=== PATIENT | female | born 1990 | race Caucasian/White ===

== ENCOUNTER 2024-12-17 05:04 | Emergency (ER) | payer OTHER, SELFPAY ==
--- OUTSIDE RECORDS SUMMARY | 2024-12-15 08:30 | XMS_ITS | Encounter Summary ---
Author Organization [facility] Address [address] [place] [address] Care Team Providers Care Edger Hand Name Role Phone Souleymane Mccallum MD Primary Care Provider [phone] Reason for Visit * Reason Comments 48 hour holter monitor * Cardiac Stress Testing (Routine) - Authorized Specialty Diagnoses / Procedures Referred By Contac t Referred To Contact Cardiology Diagnoses Dizziness Procedures Cardiac holter monitor (<= 48 hours) [place] ECG EXTERNAL UP TO 48 HOURS RECORDING W[place] ECG EXTERNAL < 48 HOURS CONTINUOUS RECORDING/STORAGE R&I BY A PHYS/QHP [place] EXTERNAL ECG UP TO 48 HRS INCL RECORDING SCANNING ANLYS W REPORT Alfredito Echevarria MD [address] [place] [address] DRIVE [address] [place] [address] Phone: tel: fax: [facility] Referral ID Status Reason Start Date Expiration Date V isits Requested Visits Authorized [id number] Authorized 11/28/2024 11/28/2025 1 1 Encounter Details Date Type Department Care Team (Late st Contact Info) Description 12/15/2024 8:30 AM EDT Ancillary Procedure [facility] [address] [place] [address] Dizziness Social History Tobacco Use Types Packs/Day Years Used Date Smoking Tobacco: Never Smokeless Tobacco: Never Alcohol Use Standard Drinks/Week Comments No 0 (1 standard drink = 0.6 oz pur e alcohol) Comments Unknown Sex and Gender Information Value Date Recorded Sex Assigned at Not on file Legal Sex Female 8:16 AM EST Gender Identity Not on file Sexual Orientation Not on file documented as of this encounter Plan of Treatment Upcoming Encounters Date Type Department Care Team (Late st Contact Info) Description 12/22/2024 8:20 AM EDT Office Visit [facility] [address] [place] [address] lAfredito Echevarria MD [address] [place] [address] DRIVE [address] [place] [address] 12/26/2024 1:00 PM EDT Appointment [facility] [address] [place] [phone] Pending Results Name Type Priority Associated Diagnoses Date /Time Cardiac holter monitor (<= 48 hours) Cardiac Services Routine Dizziness 12/15/2024 8:13 AM EDT documented as of this encounter Visit Diagnoses Diagnosis Dizziness Dizziness and giddiness documented in this encounter Care Teams Edger Hand Relationship Specialty Start Date End Date Souleymane Mccallum MD [address] [place] [id number] PCP - General Internal Medicine 12/04/24 documented as of this encounter
[2024-12-17] VITALS (10 sets, daily range): BP systolic 91–110; BP diastolic 55–76; PULSE 65–86; RESP 16–26; TEMP 36.6–36.8; O2SAT 97–100; BMI 30.7
--- NOTE | ~2024-12-17 | US_ITS ---
CLINICAL HISTORY: abnormal vaginal bleeding US pelvis transvaginal Comparison: None provided Findings: Transvaginal scanning performed. The uterus is 8.1 cm length. Normal myometrium. Endometrium 4.0 mm thickness. Right ovary 2.5 x 1.6 x 2.1 cm. Left ovary 2.9 x 1.9 x 2.8 cm. Normal color Doppler of both ovaries. No free fluid. IMPRESSION: No acute findings. This document has been electronically signed by: Gutierrez Allen MD on 12/17/2024 10:56:16
[2024-12-17 05:58] LABS: Hematocrit 34.4 % (37.0-47.0); Hemoglobin 11.0 g/dl (12.0-16.0); Imm Gran Abs Auto 0.01 X10*3/uL (0.00-0.03); Imm Gran Pct Auto 0.3 % (0.0-0.4); Lymphocytes Absolute Auto 1.1 X10*3/uL (1.2-4.9); MANUAL DIFF FLAG NO; Mean Corpuscular HGB Conc 32.0 g/dl (31.0-35.0); Mean Corpuscular Hemoglobin 27.0 pg (27.0-33.0); Mean Corpuscular Volume 84.5 fL (80.0-98.0); NRBC Abs Auto 0.000 X10*3/uL (0.0-0.012); NRBC Pct Auto 0.0 /100WBC (0.0-0.2); Platelet Count 231 X10*3/uL (160-400); Red Blood Count 4.07 X10*6/uL (4.20-5.50); White Blood Count 4.0 X10*3/uL (4.8-10.8)
--- NOTE | 2024-12-17 06:11 | PC.NURSE ---
20 G IV line established in L forearm, labs drawn and sent to lab for processing.
[2024-12-17 06:16] LABS: Alanine Aminotransferase 11 U/L (0-31); Albumin Level 4.4 g/dL (3.5-5.0); Alkaline Phosphatase 52 U/L (39-117); Anion Gap 14 (12-20); Aspartate Amino Transferase 22 U/L (5-31); Blood Urea Nitrogen 11 mg/dL (9-16); Calcium 9.0 mg/dL (8.4-10.2); Carbon Dioxide 18 mmol/L (22-29); Chloride 114 mmol/L (96-108); Creatinine Clr Calc Pharmacy 117.3; Estimated Glomerular Filt Rate > 60; Potassium 4.3 mmol/L (3.3-5.1); Sodium 142 mmol/L (135-145); Total Protein 7.6 g/dL (6.5-8.0)
--- OUTSIDE RECORDS SUMMARY | 2024-12-17 06:29 | XMS_ITS | Patient Health Record ---
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 Name Role Phone AURA MARTINEZ Unavailable [phone] MCCALLUMDANETTE BELL Unavailable [phone] TIRSOADRIANO Unavailable [phone] Nydia Marmolejo Unavailable [phone] SUZETTE LOWE Unavailable [phone] Allergies No Known Allergies Results Component Value Reference Range Notes CBC (INCLUDES DIFF/PLT) Reviewed date:09/11/2024 01:32:33 PM Interpretation: Performing Lab:NL2, [employer] [facility] [id number] Raul Bustillo Notes/Report: FASTING: YES FASTING:YES WHITE BLOOD CELL COUNT 4.1 3.8-10.8 Thousand/ uL RED BLOOD CELL COUNT 3.76 3.80-5.10 Million/uL HEMOGLOBIN 9.5 11.7-15.5 g/dL HEMATOCRIT 31.5 35.0-45.0 % MCV 83.8 80.0-100.0 fL MCH 25.3 27.0-33.0 pg MCHC 30.2 32.0-36.0 g/dL For adults, a slight decrease in the calculated MCHC value (in the range of 30 to 32 g/dL) is most likely not clinically significant; however, it should be interpreted with caution in correlation with other red cell parameters and the patient's clinical condition. RDW 14.8 11.0-15.0 % PLATELET COUNT 249 140-400 Thousand/uL MPV 10.8 7.5-12.5 fL ABSOLUTE NEUTROPHILS 2583 0456-8120 cells/uL ABSOLUTE LYMPHOCYTES 3499 534-9212 cells/uL ABSOLUTE MONOCYTES 340 200-950 cells/uL ABSOLUTE EOSINOPHILS 62 15-500 cells/uL ABSOLUTE BASOPHILS 21 0-200 cells/uL NEUTROPHILS 63 LYMPHOCYTES 26.7 MONOCYTES 8.3 EOSINOPHILS 1.5 BASOPHILS 0.5 URINALYSIS, COMPLETE Reviewed date:09/11/2024 01:32:33 PM Interpretation: Performing Lab:NL2, [employer] [facility] [address] Raul Bustillo Notes/Report: FASTING:YES FASTING: YES COLOR YELLOW YELLOW APPEARANCE CLEAR CLEAR SPECIFIC GRAVITY 1.019 1.001-1.035 PH 6.5 5.0-8.0 GLUCOSE NEGATIVE NEGATIVE BILIRUBIN NEGATIVE NEGATIVE KETONES NEGATIVE NEGATIVE OCCULT BLOOD NEGATIVE NEGATIVE PROTEIN NEGATIVE NEGATIVE NITRITE NEGATIVE NEGATIVE LEUKOCYTE ESTERASE NEGATIVE NEGATIVE WBC 0-5 < OR = 5 /HPF RBC NONE SEEN < OR = 2 /HPF SQUAMOUS EPITHELIAL CELLS 0-5 < OR = 5 /HPF BACTERIA NONE SEEN NONE SEEN /HPF HYALINE CAST NONE SEEN NONE SEEN /LPF NOTE This urine was analyzed for the presence of WBC, RBC, bacteria, casts, and other formed elements. Only those elements seen were reported. LIPID PANEL, STANDARD Reviewed date:09/11/2024 01:32:33 PM Interpretation: Performing Lab:2, [employer] [address] Giancarlo Missael [facility] Notes/Report: FASTING:YES FASTING: YES CHOLESTEROL, TOTAL 154 <200 mg/dL HDL CHOLESTEROL 56 > OR = 50 mg/dL TRIGLYCERIDES 48 <150 mg/dL LDL-CHOLESTEROL 84 Reference range: <100 Desirable range <100 mg/dL for primary prevention; <70 mg/dL for patients with CHD or diabetic patients with > or = 2 CHD risk factors. LDL-C is now calculated using the Shirley calculation, which is a validated novel method providing better accuracy than the Friedewald equation in the estimation of LDL-C. Martin KOWALSKI et al. [place]. 2013;310(19): 3496-1964 (http://education.Appbistro.Disconnect/faq/VFJ112) CHOL/HDLC RATIO 2.8 <5.0 (calc) NON HDL CHOLESTEROL 98 <130 mg/dL (calc) For patients with diabetes plus 1 major ASCVD risk factor, treating to a non-HDL-C goal of <100 mg/dL (LDL-C of <70 mg/dL) is considered a therapeutic option. COMPREHENSIVE METABOLIC PANE L Reviewed date:09/11/2024 01:32:33 PM Interpretation: Performing Lab:NL2, [employer] [facility] Raul Bustillo Notes/Report: FASTING:YES FASTING: YES GLUCOSE 89 65-99 mg/dL Fasting reference interval UREA NITROGEN (BUN) 10 7-25 mg/dL CREATININE 0.67 0.50-0.97 mg/dL EGFR 117 > OR = 60 mL/min/1.73m2 BUN/CREATININE RATIO SEE NOTE: 6-22 (calc) Not Reported: BUN and Creatinine are within reference range. SODIUM 139 135-146 mmol/L POTASSIUM 4.8 3.5-5.3 mmol/L CHLORIDE 105 98-110 mmol/L CARBON DIOXIDE 27 20-32 mmol/L CALCIUM 8.8 8.6-10.2 mg/dL PROTEIN, TOTAL 7.0 6.1-8.1 g/dL ALBUMIN 4.3 3.6-5.1 g/dL GLOBULIN 2.7 1.9-3.7 g/dL (calc) ALBUMIN/GLOBULIN RATIO 1.6 1.0-2.5 (calc) BILIRUBIN, TOTAL 0.3 0.2-1.2 mg/dL ALKALINE PHOSPHATASE 47 31-125 U/L AST 13 10-30 U/L ALT 12 6-29 U/L HEMOGLOBIN A1c Reviewed date:09/11/2024 01:32:33 PM Interpretation: Performing Lab:NL2, [employer] [facility] Raul Bustillo Notes/Report: FASTING:YES FASTING: YES HEMOGLOBIN A1c 5.5 <5.7 % of total Hgb For the purpose of screening for the presence of diabetes: <5.7% Consistent with the absence of diabetes 5.7-6.4% Consistent with increased risk for diabetes (prediabetes) > or =6.5% Consistent with diabetes This assay result is consistent with a decreased risk of diabetes. Currently, no consensus exists regarding use of hemoglobin A1c for diagnosis of diabetes in children. According to [place] Diabetes Association (ADA) guidelines, hemoglobin A1c <7.0% represents optimal control in non- diabetic patients. Different metrics may apply to specific patient populations. Standards of Medical Care in Diabetes(ADA). T4, FREE Reviewed date:09/11/2024 01:32:33 PM Interpretation: Performing Lab:NL2, [employer] [facility]SkyMaria [place] [id number] [place] [address] Missael [facility] Notes/Report: FASTING:YES FASTING: YES T4, FREE 1.2 0.8-1.8 ng/dL T3, TOTAL Reviewed date:09/11/2024 01:32:33 PM Interpretation: Performing Lab:NL2, [employer] [facility] [facility] Notes/Report: FASTING:YES FASTING: YES T3, TOTAL 86 76-181 ng/dL TSH Reviewed date:09/11/2024 01:32:33 PM Interpretation: Performing Lab:NL2, [employer] [facility] [place] [id number] [place] [address] [facility] Notes/Report: FASTING:YES FASTING: YES TSH 1.46 Reference Range > or = 20 Years 0.40-4.50 Ranges First trimester 0.26-2.66 Second trimester 0.55-2.73 Third trimester 0.43-2.91 T3, FREE Reviewed date:09/11/2024 01:32:33 PM Interpretation: Performing Lab:NL2, [employer] [facility] [place] [id number] Missael [facility] Notes/Report: FASTING:YES FASTING: YES T3, FREE 2.8 2.3-4.2 pg/mL VITAMIN D,25-OH,TOTAL,IA Reviewed date:09/11/2024 01:32:33 PM Interpretation: Performing Lab:NL2, [employer] [facility] [place] [id number] Missael [facility] Notes/Report: FASTING:YES FASTING: YES VITAMIN D,25-OH,TOTAL,IA 31 30-100 ng/mL Vitamin D Status 25-OH Vitamin D: Deficiency: <20 ng/mL Insufficiency: 20 - 29 ng/mL Optimal: > or = 30 ng/mL For 25-OH Vitamin D testing on patients on D2-supplementation and patients for whom quantitation of D2 and D3 fractions is required, the QuestAssureD(TM) 25-OH VIT D, (D2,D3), LC/MS/MS is recommended: order code 11279 (patients >2yrs). See Note 1 Note 1 For additional information, please refer to http://education.[employer]/faq/CWD672 (This link is being provided for informational/ educational purposes only.) PHOSPHATE ( PHOSPHORUS) Reviewed date:11/03/2024 07:59:25 AM Interpretation: Performing Lab:NL2, [employer] [facility] [place] [id number] Raul Bustillo Notes/Report: FASTING: YES FASTING:YES PHOSPHATE ( PHOSPHORUS) 3.5 2.5-4.5 mg/dL HEMOGLOBIN A1c Reviewed date:11/03/2024 07:59:25 AM Interpretation: Performing Lab:NL2, [employer] [facility] Giancarlo Missael Montiel Notes/Report: FASTING: YES FASTING:YES HEMOGLOBIN A1c 5.2 <5.7 % For the purpose of screening for the presence of diabetes: <5.7% Consistent with the absence of diabetes 5.7-6.4% Consistent with increased risk for diabetes (prediabetes) > or =6.5% Consistent with diabetes This assay result is consistent with a decreased risk of diabetes. Currently, no consensus exists regarding use of hemoglobin A1c for diagnosis of diabetes in children. According to [place] Diabetes Association (ADA) guidelines, hemoglobin A1c <7.0% represents optimal control in non- diabetic patients. Different metrics may apply to specific patient populations. Standards of Medical Care in Diabetes(ADA). COMPREHENSIVE METABOLIC PANE L Reviewed date:11/03/2024 07:59:25 AM Interpretation: Performing Lab:NL2, [employer] [facility] Raul Bustillo Notes/Report: FASTING:YES FASTING: YES GLUCOSE 83 65-99 mg/dL Fasting reference interval UREA NITROGEN (BUN) 9 7-25 mg/dL CREATININE 0.56 0.50-0.97 mg/dL EGFR 122 > OR = 60 mL/min/1.73m2 BUN/CREATININE RATIO SEE NOTE: 6-22 (calc) Not Reported: BUN and Creatinine are within reference range. SODIUM 140 135-146 mmol/L POTASSIUM 4.9 3.5-5.3 mmol/L CHLORIDE 107 98-110 mmol/L CARBON DIOXIDE 26 20-32 mmol/L CALCIUM 9.3 8.6-10.2 mg/dL PROTEIN, TOTAL 7.0 6.1-8.1 g/dL ALBUMIN 4.4 3.6-5.1 g/dL GLOBULIN 2.6 1.9-3.7 g/dL (calc) ALBUMIN/GLOBULIN RATIO 1.7 1.0-2.5 (calc) BILIRUBIN, TOTAL 0.6 0.2-1.2 mg/dL ALKALINE PHOSPHATASE 48 31-125 U/L AST 12 10-30 U/L ALT 8 6-29 U/L CBC (INCLUDES DIFF/PLT) Reviewed date:11/03/2024 09:45:44 AM Interpretation: Performing Lab:NL2, [employer] [facility] [address] [place], [place] [address] Raul Bustillo Notes/Report: FASTING:YES FASTING: YES WHITE BLOOD CELL COUNT 3.9 3.8-10.8 Thousand/ uL RED BLOOD CELL COUNT 4.01 3.80-5.10 Million/uL HEMOGLOBIN 10.4 11.7-15.5 g/dL HEMATOCRIT 34.1 35.0-45.0 % MCV 85.0 80.0-100.0 fL MCH 25.9 27.0-33.0 pg MCHC 30.5 32.0-36.0 g/dL For adults, a slight decrease in the calculated MCHC value (in the range of 30 to 32 g/dL) is most likely not clinically significant; however, it should be interpreted with caution in correlation with other red cell parameters and the patient's clinical condition. RDW 16.7 11.0-15.0 % PLATELET COUNT 288 140-400 Thousand/uL MPV 10.7 7.5-12.5 fL ABSOLUTE NEUTROPHILS 2430 6068-6633 cells/uL ABSOLUTE LYMPHOCYTES 3003 844-2574 cells/uL ABSOLUTE MONOCYTES 273 200-950 cells/uL ABSOLUTE EOSINOPHILS 39 15-500 cells/uL ABSOLUTE BASOPHILS 12 0-200 cells/uL NEUTROPHILS 62.3 LYMPHOCYTES 29.4 MONOCYTES 7.0 EOSINOPHILS 1.0 BASOPHILS 0.3 Reason For Referral Reason iron infusions Diagnosis 1 Low ferritin (R79.0) Referral Organization [facility] Referring Provider First Name AURA Referring Provider Last Name JUAN Referring Provider [facility] edicine Referred Provider Specialty Hematology Clinical Notes Camila Mckeon 01:54:37 PM >faxed referral with labs to [facility], p) [phone], f) [phone], Mike Tellojl 09/07/2024 03:27:55 PM > Scheduled for 09/27/24. Pt aware Referral Priority Routine Diagnosis 1 Anxiety (F41.9) Referral Organization [facility] Referring Provider First Name AURA Referring Provider Last Name JUAN Referring Provider [facility] Referred Provider Specialty Psychiatry General Notes [facility], p: , f: [phone] Referral Priority Routine Reason evaluate & treat Diagnosis 1 Hormone imbalance (E 34.9) Diagnosis 2 Pheochromocytoma, un specified laterality (D35.00) Referral Organization [facility] Referring Provider First Name AURA Referring Provider Last Name JUAN Referring Provider [facility] Referred Provider Specialty Endocrinolog y General Notes Yaa Carpenter 11/29 10:38:13 AM > faxed over to Yobany Ulloa MD at [facility] endocrinology , p. , f. [phone] Clinical Notes Gabe Batista 01/2025 09:11:33 AM > refaxed. pt called in stating they did not receive anything. Referral Priority Routine Medications Medication SIG (Take, Route, Fr equency, Duration) Notes Start Date End Date Status Iron 325 (65 Fe) MG 1 tablet Orally twic e a day; Duration: 30 days 09/15/2023 Active Multi Complete - as directed Orally Active Probiotic 250 MG as directed Orally Active Vitamin D Active Vitamin C Active Sertraline HCl 20 MG/ML 0.6 ML MIXED WIT H 4 OUNCES OF WATER, ORANGE JUICE, LEMONADE, JHONNY ALONZO OR LEMON/NIKOLAI SODA ORALLY ONCE A DAY 30 DAYS; Duration: 90 Acti ve B Complex Active Social History Tobacco Use: Social History Observation Description Date Details (start date - stop date) Never Smoker NA - NA Tobacco Use/Smoking Question Answer Notes Are you a nonsmoker Problems Problem Type SNOMED Code ICD Code Onset Dates Problem Status W/U Status Risk Notes Problem 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 Problem Chronic pain (93467596) Other chronic pain (G89.29) Active confirmed Problem Anxiety (62556114) Anxiety (F41.9) Active confirmed Problem Adult health examination (454839078) Adult general medical exam (Z00.00) Active confirmed Problem Vitamin D deficiency (18418830) Vitamin D deficiency (E55.9) Active confirmed Problem Diabetes mellitus screening (491992683) Diabetes mellitus screening (Z13.1) Active confirmed Problem Acute stress disorder (33619978) Stress reaction (F43.0) Active confirmed Problem Streptococcal sore throat (disorder) (39330564) Strep pharyngitis (J02.0) Active confirmed Problem Chronic anemia (679784240) Chronic anemia (D64.9) Active confirmed Problem Neck pain (32370184) Neck pain on right side (M54.2) Active confirmed Problem Right upper quadrant pain (425967810) RUQ pain (R10.11) Active confirmed Problem Generalized anxiety disorder (53291928) Anxiety, generalized (F41.1) Active confirmed Vital Signs Heart Rate 77 /min 11/21/2024 Oximetry 99 % 11/21/2024 Blood pressure diastolic 80 mm Hg 11/21/2024 Height 64 in 11/21/2024 Blood pressure systolic 110 mm Hg 11/21/2024 Weight 148 lbs 11/21/2024 BMI 25.4 kg/m2 11/21/2024 Encounters Encounter Location Date Provider Diagnosis [facility] [address] [address] 04/11/2024 SUZETTE LOWE Strep pharyngitis J02.[address] [facility] [address] [place] [address] 04/21/2024 AURA MARTINEZ Non-recurrent acute suppurative otitis media of right ear without spontaneous rupture of tympanic membrane H66.001 and Strep pharyngitis J02.[address] [facility] [address] [place] [address] 07/14/2024 AURA MARTINEZ Ear pain, right H92. 01 and Neck pain on right side M54.[address] [facility] [address] [place] [address] 09/15/2024 AURA MARTINEZ Adult general medica l exam Z00.00 ; RUQ pain R10.11 ; Anxiety, generalized F41.1 and Chronic anemia D64.[address] [facility] [address] [place] 11/01/2024 AURA MARTINEZ Other disorders of phosphorus metabolism E83.39 ; Anxiety disorder with panic attacks F41.9 ; Chronic anemia D64.9 and Encounter for examination of blood pressure without abnormal findings Z01.[address] [facility] [address] 11/13/2024 AURA MARTINEZ Chronic anemia D64.9 ; Anxiety disorder with panic attacks F41.9 and Encounter for examination of blood pressure without abnormal findings Z01.[address] [address] [address] 11/21/2024 AURA MARTINEZ Chronic anemia D64.9 ; Anxiety disorder with panic attacks F41.9 and Encounter for examination of blood pressure without abnormal findings Z01.[address] [facility] [address] [address] 12/28/2023 TALAL MCCALLUM [facility] [address] 04/10/2024 TALAL MCCALLUM [facility] [address] [place] [address] 04/21/2024 TALAL MCCALLUM [facility] [address] [place], [place] 07/12/2024 AURADENIZ MEDEROSA [facility] [address] [place] [address] 07/12/2024 TALAL MCCALLUM [facility] [address] [place] [address] 09/07/2024 AURA JUAN [facility] [address] [place] [address] 09/07/2024 TALAL MCCALLUM [facility] [address] [place] [address] 10/03/2024 AURA JUAN [facility] [address] [place] [address] 10/05/2024 AURA MEDEROSA [facility] [address] [place] [address] 10/29/[address] N[address] Fieldscek [facility] [address] [place] [address] 10/31/2024 TALAL MCCALLUM [facility] [address] [place] [address] 11/01/2024 AURA MARTINEZ [facility] [address] [place] [address] 11/07/2024 AURA MARTINEZ [facility] [address] [place] [address] 11/08/2024 AURA MARTINEZ [facility] [address] [place] [address] 11/10/2024 AURA MARTINEZ [facility] [address] [place] [address] 11/14/2024 AURA MARTINEZ [facility] [address] [place] [address] 12/12/2024 JOEYAH MCCALLUM [facility] [address] [place] [address] 12/28/2023 TALAL MCCALLUM [facility] [address] [place] [address] 08/28/2024 TALAL MCCALLUM [facility] [address] [place] [address] 08/28/2024 TALAL MCCALLUM [facility] [address] [place] [address] 08/28/2024 AURA MARTINEZ Annual physical exam Z00.00 ; Screening for diabetes mellitus Z13.1 ; Screening for thyroid disorder Z13.29 ; Screening for lipid disorders Z13.220 and Vitamin D deficiency E55.[address] [facility] [address] [place] [address] 10/05/2024 DANETTE MCCALLUM [facility] [address] [place] [address] 10/22/2024 AURA MARTINEZ RUQ abdominal pain R10.11 [facility] [address] [place] [address] 11/06/2024 AURA JUAN Anxiety disorder wit h panic attacks F41.9 [facility] [address] [place] [address] 11/15/2024 AURA JUAN [facility] [address] [place] [address] 11/16/2024 AURA JUAN [facility] [address] [place] [address] 11/24/2024 AURA JUAN [facility] [address] [place] [address] 11/27/2024 AURA JUAN [facility] [address] [place] [address] 11/28/2024 AURA JUAN [facility] [address] [place] [address] 12/01/2024 AURA JUAN Assessments Encounter Date Diagnosis (ICD Code) Assessment Notes Treatment Notes Treatment Clinical Notes Section Notes 04/21/2024 Non-recurrent acute suppurative otitis media of right ear without spontaneous rupture of tympanic membrane (ICD-10 - H66.001) Steff is a 33-year-old female present for urgent visit. # Strep pharyngitis: Resolved. Patient was on day 5 of penicillin use when she presented for urgent visit on 04/11. Prescribed Augmentin twice daily x 10 days. Patient reports not using this medication and instead finishing the full course of penicillin, which relieved symptoms. # Right ear otitis media: Patient self treated with Augmentin that was prescribed for strep. Has had 2 full days of Augmentin 875 mg twice daily with no symptom relief. Also taking Tylenol as needed for pain. Discussed that with recent antibiotic use, Augmentin is the best treatment for otitis media. Discussed that similar to strep throat, patient should take Augmentin for a full 5 days prior to deciding treatment failure. Plan for patient to continue antibiotic through the weekend with instruction to call the office by Marlon if she has had no symptom improvement. Recommended to continue using Tylenol every 6 hours as needed. Will consider cefpodoxime 200 mg p.o. twice daily for 7 days. All questions answered to patients satisfaction. Patient verbalized understanding of diagnosis and treatments explained. To call sooner prior to next visit it any questions/concerns arise. Case discussed with collaborating physician Dr. Mccallum who reviewed the assessment and plan. Chart, medications, labs, vital signs reviewed. Dictation was accomplished with the use of [employer] voice recognition software, prone to medical misidentifications and grammatical errors. This is unintentional and the practitioner does try to identify and correct these, but some could still be present. Please do not hesitate to contact practitioner for clarification. 07/14/2024 Ear pain, right (ICD-10 - H92.01) Steff is a pleasant 34-year-old female present today for urgent visit past medical history includes anxiety. # Right ear pain # right sided scalp tenderness # ? Occiptal neuralgia: Patient first presented on 04/11 and was treated for suspected right ear infection with Augmentin. Patient reports ear pain did not resolve after antibiotics, but slowly resolved shortly after. Patient presenting today with right ear pain again. Of note patient had an upper respiratory infection a week and a half ago and has since resolved but this shortly developed afterwards. States right ear pain is intermittent and stabbing at times. Also has associated right sided scalp tenderness. Denies any other symptoms including ear drainage, persistent ear pain, vision changes, nausea, vomiting, headache, pain with neck flexion, temporal tenderness, tenderness to manipulation of the pinna, posterior to ear or inflammation or erythema. Ear exam unremarkable, no erythema, membrane bulge, air-fluid levels. Less suspicious for otitis media. Suspicious for occipital neuralgia given recent viral infection given stabbing ear pain, right scalp tenderness and neck pain. Will prescribe short course of prednisone and tizanidine as needed. Discussed using tizanidine, muscle relaxer as needed with clear instruction to not drive or drink while using this medication. Plan to continue to monitor. Will consider ENT referral. All questions answered to patients satisfaction. Patient verbalized understanding of diagnosis and treatments explained. To call sooner prior to next visit it any questions/concerns arise. Case discussed with collaborating physician Dr. Mccallum who reviewed the assessment and plan. Chart, medications, labs, vital signs reviewed. Dictation was accomplished with the use of [employer] voice recognition software, prone to medical misidentifications and grammatical errors. This is unintentional and the practitioner does try to identify and correct these, but some could still be present. Please do not hesitate to contact practitioner for clarification. 07/14/2024 Neck pain on right side (ICD-10 - M54.2) Steff is a pleasant 34-year-old female present today for urgent visit past medical history includes anxiety. # Right ear pain # right sided scalp tenderness # ? Occiptal neuralgia: Patient first presented on 04/11 and was treated for suspected right ear infection with Augmentin. Patient reports ear pain did not resolve after antibiotics, but slowly resolved shortly after. Patient presenting today with right ear pain again. Of note patient had an upper respiratory infection a week and a half ago and has since resolved but this shortly developed afterwards. States right ear pain is intermittent and stabbing at times. Also has associated right sided scalp tenderness. Denies any other symptoms including ear drainage, persistent ear pain, vision changes, nausea, vomiting, headache, pain with neck flexion, temporal tenderness, tenderness to manipulation of the pinna, posterior to ear or inflammation or erythema. Ear exam unremarkable, no erythema, membrane bulge, air-fluid levels. Less suspicious for otitis media. Suspicious for occipital neuralgia given recent viral infection given stabbing ear pain, right scalp tenderness and neck pain. Will prescribe short course of prednisone and tizanidine as needed. Discussed using tizanidine, muscle relaxer as needed with clear instruction to not drive or drink while using this medication. Plan to continue to monitor. Will consider ENT referral. All questions answered to patients satisfaction. Patient verbalized understanding of diagnosis and treatments explained. To call sooner prior to next visit it any questions/concerns arise. Case discussed with collaborating physician Dr. Mccallum who reviewed the assessment and plan. Chart, medications, labs, vital signs reviewed. Dictation was accomplished with the use of [employer] voice recognition software, prone to medical misidentifications and grammatical errors. This is unintentional and the practitioner does try to identify and correct these, but some could still be present. Please do not hesitate to contact practitioner for clarification. 08/28/2024 Annual physical exam (ICD-10 - Z00.00) 04/11/2024 Strep pharyngitis (ICD-10 - J02.0) Steff is a 33-year-old female with PMH of anxiety and iron deficiency anemia that presents for evaluation of strep throat. Patient seen in urgent care 04/05/2024 where she was diagnosed with strep throat and prescribed a 10-day course of penicillin. The patient presents having taken 5 days of the antibiotic with compliance without significant improvement of symptoms. She continues to experience sore throat L>R and pain with swallowing. On exam there is erythema of the posterior pharynx, the tonsils are without edema or notable swelling. No palpable lymphadenopathy, exam otherwise WNL. Discussed utility of throat culture - given the patient is currently on antibiotics, result may be affected. As the patient has not had adequate response to penicillin, plan to switch antibiotic to Augmentin twice daily x 10 days. Reviewed proper use and side effects including but not limited to GI upset. The patient is encouraged to continue salt water gargles and/or ibuprofen and Tylenol as needed for pain. Discussed the importance of adequate oral hygiene and not sharing drinks. The patient is encouraged to follow-up should symptoms not improve despite treatment. She understands to seek immediate medical attention should she develop difficulty breathing, difficulty handling secretions, fever, chills, etc. All questions answered to the patient's satisfaction. Patient demonstrates understanding of diagnosis and treatments discussed. Follow-up at next scheduled appointment, sooner should any questions/concerns arise. Case discussed with collaborating physician Kd Mccallum who has reviewed the assessment/plan. Chart, medications, labs, and vital signs reviewed. Dictation completed with the use of [employer] voice recognition software, prone to medical misidentifications and grammatical errors. All errors are unintentional. Although the practitioner does try to identify and correct errors, some may be present. Please do not hesitate to contact the practitioner for clarification. 09/15/2024 Adult general medical exam (ICD-10 - Z00.00) Steff is a pleasant 34-year-old female present today for CPE. #Anxiety: Has history of panic attacks. Currently managed on sertraline 25 mg p.o. once daily. States that she was previously 50 mg, but decreased dose approximately 4-5 months ago. Overall feels well. States she was not sure whether her palpitations and anxiety was really masked by her anemia. Would like to trial getting off of sertraline in a few months after possible IV iron infusions. #Anemia: Patient followed by [facility] and monitor with CBCs due to heavy periods. Has trialed oral iron supplements as well as iron enriched food and still has anemia present in blood work. Recently referred to [facility] hematology for further evaluation and possible iron infusions. Patient scheduled to be seen for consultation later this month. Reports dizziness, lightheadedness and palpitations as a result of the anemia. Recommend to continue with [facility] hematology recommendations. Discussed whether or not patient was a candidate per [facility] for oral contraceptives, but given patient's strong family history of breast cancer patient is not a candidate. #Right upper quadrant abdominal pain: Patient describes muscle twitch in the right upper quadrant with movement such as bending over. This has been acute on chronic for the past year and a half. This occurs intermittently at times. Denies any abdominal pain at rest or other symptoms such as nausea, vomiting, changes in bowel movements. Denies any aggravating factors such as eating meals. Patient reports that at times when bending over, she will feel a bulge in the right upper quadrant. Patient has no known history of hernias in the past. On exam patient's abdomen is unremarkable when lying supine as well as when standing. Most recent blood work revealed liver enzymes within normal limits. Patient denies any nausea, vomiting, pain aggravated by meals making gallbladder etiology less likely. Will order abdominal ultrasound for further evaluation regarding possible hernia. Discussed calling office sooner if symptoms worsen. Discussed ER protocol. #Prevention: Not up-to-date on influenza. Not up-to-date on COVID. Up-to-date on Tdap, 2020. Blood work all within normal limits aside from anemia which was addressed above. Patient unremarkable on physical exam. Plan to follow-up in 6 months and repeat labs. Will have patient obtain abdominal ultrasound at earliest convenience and will call regarding results. Will schedule follow-up sooner if indicated. Patient seen and examined. Comprehensive discussion was done on the following. 1. Nutrition: It is important to follow a healthy diet based on lots of vegetables and legumes and good fat. Avoid processed food and processed carbohydrates. Prepare your own meals. Read labels and avoid high fructose corn syrup, processed chemicals added to increase shelf life and preprepared meals. Avoid fast foods. Eat slowly and plan meals for a week. Try to count calories and be mindful off daily calorie intake. Get into the habit of keeping an eye on your weight by using an appropriate scale. Learn to log exercise and discussed fitness Apps like WalkMe which can help keep log off calories taken versus calories burned. Local food should be preferred. Discussed Dirty Dozen Versus Clean Fifteen. Discussed healthy supplements like fish oil, Tumeric, Curcumin, Melatonin, Resveratrol, Probiotics, Vitamin-D, Alpha-Lipoic acid, Vitamin-D and coconut oil. 2. It is important to exercise regularly. Is a good habit to walk at least 30 minutes a day. Gentle weightlifting with standard precautions to protect the back. Finding activity like cycling or hiking and get into the habit of engaging in it. Stretching before and after the exercises important. It is also important to contact me if there are any problems like shortness of breath, chest pain, back pain and joint or muscle pain associated with the exercise. 3. Discussed age appropriate screening guidelines. Colonoscopy needs to start at age 50 with stool for occult blood as appropriate. There is a new test that can test for genetic abnormalities in the stool sample, Cologuard. This would not replace a colonoscopy but could be used as a screening tool for patients who do not want a colonoscopy. We discussed the importance of early detection of colon cancer. 4. Discussed current guidelines with respect to breast examination, mammogram and pap smear for early detection of breast and cervical cancer. Patient advised to follow up with these appointments. 5. Discussed safe driving and no use of smart phone while driving 6. Age-appropriate immunizations were discussed. A tetanus booster is needed every 10 years. Flu vaccine is recommended every year just before the start of the flu season. Shingles vaccine is recommended after age 50 but not all insurances cover it. Pneumonia vaccine is given after age 65 unless there are certain comorbidities for which it is started earlier. 7. Diagnostic labs were discussed. These could include/not limited to CBC CMP and lipids with fasting blood glucose and insulin levels. Vitamin D and hemoglobin A1c testing might be appropriate. All questions answered to patients satisfaction. Patient verbalized understanding of diagnosis and treatments explained. To call sooner prior to next visit it any questions/concerns arise. Case discussed with collaborating physician Dr. Mccallum who reviewed the assessment and plan. Chart, medications, labs, vital signs reviewed. Dictation was accomplished with the use of [employer] voice recognition software, prone to medical misidentifications and grammatical errors. This is unintentional and the practitioner does try to identify and correct these, but some could still be present. Please do not hesitate to contact practitioner for clarification. 09/15/2024 RUQ pain (ICD-10 - R10.11) Steff is a pleasant 34-year-old female present today for CPE. #Anxiety: Has history of panic attacks. Currently managed on sertraline 25 mg p.o. once daily. States that she was previously 50 mg, but decreased dose approximately 4-5 months ago. Overall feels well. States she was not sure whether her palpitations and anxiety was really masked by her anemia. Would like to trial getting off of sertraline in a few months after possible IV iron infusions. #Anemia: Patient followed by [facility] and monitor with CBCs due to heavy periods. Has trialed oral iron supplements as well as iron enriched food and still has anemia present in blood work. Recently referred to [facility] hematology for further evaluation and possible iron infusions. Patient scheduled to be seen for consultation later this month. Reports dizziness, lightheadedness and palpitations as a result of the anemia. Recommend to continue with [facility] hematology recommendations. Discussed whether or not patient was a candidate per [facility] for oral contraceptives, but given patient's strong family history of breast cancer patient is not a candidate. #Right upper quadrant abdominal pain: Patient describes muscle twitch in the right upper quadrant with movement such as bending over. This has been acute on chronic for the past year and a half. This occurs intermittently at times. Denies any abdominal pain at rest or other symptoms such as nausea, vomiting, changes in bowel movements. Denies any aggravating factors such as eating meals. Patient reports that at times when bending over, she will feel a bulge in the right upper quadrant. Patient has no known history of hernias in the past. On exam patient's abdomen is unremarkable when lying supine as well as when standing. Most recent blood work revealed liver enzymes within normal limits. Patient denies any nausea, vomiting, pain aggravated by meals making gallbladder etiology less likely. Will order abdominal ultrasound for further evaluation regarding possible hernia. Discussed calling office sooner if symptoms worsen. Discussed ER protocol. #Prevention: Not up-to-date on influenza. Not up-to-date on COVID. Up-to-date on Tdap, 2020. Blood work all within normal limits aside from anemia which was addressed above. Patient unremarkable on physical exam. Plan to follow-up in 6 months and repeat labs. Will have patient obtain abdominal ultrasound at earliest convenience and will call regarding results. Will schedule follow-up sooner if indicated. Patient seen and examined. Comprehensive discussion was done on the following. 1. Nutrition: It is important to follow a healthy diet based on lots of vegetables and legumes and good fat. Avoid processed food and processed carbohydrates. Prepare your own meals. Read labels and avoid high fructose corn syrup, processed chemicals added to increase shelf life and preprepared meals. Avoid fast foods. Eat slowly and plan meals for a week. Try to count calories and be mindful off daily calorie intake. Get into the habit of keeping an eye on your weight by using an appropriate scale. Learn to log exercise and discussed fitness Apps like WalkMe which can help keep log off calories taken versus calories burned. Local food should be preferred. Discussed Dirty Dozen Versus Clean Fifteen. Discussed healthy supplements like fish oil, Tumeric, Curcumin, Melatonin, Resveratrol, Probiotics, Vitamin-D, Alpha-Lipoic acid, Vitamin-D and coconut oil. 2. It is important to exercise regularly. Is a good habit to walk at least 30 minutes a day. Gentle weightlifting with standard precautions to protect the back. Finding activity like cycling or hiking and get into the habit of engaging in it. Stretching before and after the exercises important. It is also important to contact me if there are any problems like shortness of breath, chest pain, back pain and joint or muscle pain associated with the exercise. 3. Discussed age appropriate screening guidelines. Colonoscopy needs to start at age 50 with stool for occult blood as appropriate. There is a new test that can test for genetic abnormalities in the stool sample, Cologuard. This would not replace a colonoscopy but could be used as a screening tool for patients who do not want a colonoscopy. We discussed the importance of early detection of colon cancer. 4. Discussed current guidelines with respect to breast examination, mammogram and pap smear for early detection of breast and cervical cancer. Patient advised to follow up with these appointments. 5. Discussed safe driving and no use of smart phone while driving 6. Age-appropriate immunizations were discussed. A tetanus booster is needed every 10 years. Flu vaccine is recommended every year just before the start of the flu season. Shingles vaccine is recommended after age 50 but not all insurances cover it. Pneumonia vaccine is given after age 65 unless there are certain comorbidities for which it is started earlier. 7. Diagnostic labs were discussed. These could include/not limited to CBC CMP and lipids with fasting blood glucose and insulin levels. Vitamin D and hemoglobin A1c testing might be appropriate. All questions answered to patients satisfaction. Patient verbalized understanding of diagnosis and treatments explained. To call sooner prior to next visit it any questions/concerns arise. Case discussed with collaborating physician Dr. Mccallum who reviewed the assessment and plan. Chart, medications, labs, vital signs reviewed. Dictation was accomplished with the use of [employer] voice recognition software, prone to medical misidentifications and grammatical errors. This is unintentional and the practitioner does try to identify and correct these, but some could still be present. Please do not hesitate to contact practitioner for clarification. 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 # Patient seen in the ER on 10/26/2024 for possible iron transfusion reaction. Patient reported increased jittery, shaking and shivering sensation. [place] increased chest pressure rated 8/10. Was given IV Benadryl. EKG within normal limits. Troponins negative. Chest xray negative. Low suspicion for ACS. Negative Perc criteria. Blood work revealed anemia and low phosphorus of 2.3. Phosphate replenished. Was discharged with recommendations to follow-up with primary. Will repeat CBC, CMP and phosphate. # Anxiety: Patient has been stable on sertraline 25 mg for the past few years. States she had self discontinued the medication after cutting without it for a few days and feeling overall well. As of recently, has had increased anxiety in her life regarding hematology referral and IV iron transfusions as well as a biopsy scheduled with [facility] in November to further evaluate for heavy menstruation. Patient has experienced ongoing panic attacks and increased anxiety daily had called. On-call service and spoke with Nydia Marmolejo PA-C who recommended to continue sertraline 25 mg daily and Ativan 1 mg as needed with recommendations to take a half tab for panic symptoms. Patient today reports that she previously took half of sertraline 25 mg daily and that 25 mg may be too much for her. Discussed the importance of daily use of sertraline in order for it to have full efficacy. Discussed how increased anxiety when initiating sertraline therapy can be normal or occur with intermittent use. Discussed the importance of daily compliance in order to build up and work effectively after at least 2 weeks. Discussed how full efficacy takes 6 to 8 weeks. Recommend to continue with Ativan use as needed for breakthrough panic attacks. Given patient's concern regarding continuation with sertraline, would recommend discontinuing altogether and switching to escitalopram. Will start low-dose escitalopram 5 mg and follow-up in 2 weeks for efficacy. Will refill Ativan for 5 tabs and recommend taking 1/2 tab as needed. Can repeat a half tab after 15-20 minutes if needed. Benzodiazepines can be habit-forming. Would not recommend every day use. Prescribing 5 pills to use as needed to bridge until efficacy with escitalopram. No refills will be submitted. If additional medication is needed, we will trial hydroxyzine for continuous use. Discussed ER protocol and recommend discontinuing medication immediately if SI/HI develops. Reiterated that increased anxiety can occur while titrating up on SSRI medication. Will see patient back in office in 2 weeks. Patient provided with psychiatry handout regarding to resources in the area. Recommend establishing care with psychiatrist for medication management or otherwise CBT therapy. Will send referral at patient's request if needed. Recommend calling office sooner if needed. Discussed ER protocol. # Low phosphorus level in ER blood work. Will repeat labs today to further evaluate. # Patient is to hold off on IV transfusions with hematology given concern for possible reaction. Would recommend managing anxiety prior to reinitiating transfusions. All questions answered to patients satisfaction. Patient verbalized understanding of diagnosis and treatments explained. To call sooner prior to next visit it any questions/concerns arise. Case discussed with collaborating physician Dr. Mccallum who reviewed the assessment and plan. Chart, medications, labs, vital signs reviewed. Dictation was accomplished with the use of [employer] voice recognition software, prone to medical misidentifications and grammatical errors. This is unintentional and the practitioner does try to identify and correct these, but some could still be present. Please do not hesitate to contact practitioner for clarification. 11/01/2024 Anxiety disorder with panic attacks (ICD-10 - F41.9) Steff is a pleasant 34-year-old female present today for hospital follow-up. # Patient seen in the ER on 10/26/2024 for possible iron transfusion reaction. Patient reported increased jittery, shaking and shivering sensation. [place] increased chest pressure rated 8/10. Was given IV Benadryl. EKG within normal limits. Troponins negative. Chest xray negative. Low suspicion for ACS. Negative Perc criteria. Blood work revealed anemia and low phosphorus of 2.3. Phosphate replenished. Was discharged with recommendations to follow-up with primary. Will repeat CBC, CMP and phosphate. # Anxiety: Patient has been stable on sertraline 25 mg for the past few years. States she had self discontinued the medication after cutting without it for a few days and feeling overall well. As of recently, has had increased anxiety in her life regarding hematology referral and IV iron transfusions as well as a biopsy scheduled with [facility] in November to further evaluate for heavy menstruation. Patient has experienced ongoing panic attacks and increased anxiety daily had called. On-call service and spoke with Nydia Marmolejo PA-C who recommended to continue sertraline 25 mg daily and Ativan 1 mg as needed with recommendations to take a half tab for panic symptoms. Patient today reports that she previously took half of sertraline 25 mg daily and that 25 mg may be too much for her. Discussed the importance of daily use of sertraline in order for it to have full efficacy. Discussed how increased anxiety when initiating sertraline therapy can be normal or occur with intermittent use. Discussed the importance of daily compliance in order to build up and work effectively after at least 2 weeks. Discussed how full efficacy takes 6 to 8 weeks. Recommend to continue with Ativan use as needed for breakthrough panic attacks. Given patient's concern regarding continuation with sertraline, would recommend discontinuing altogether and switching to escitalopram. Will start low-dose escitalopram 5 mg and follow-up in 2 weeks for efficacy. Will refill Ativan for 5 tabs and recommend taking 1/2 tab as needed. Can repeat a half tab after 15-20 minutes if needed. Benzodiazepines can be habit-forming. Would not recommend every day use. Prescribing 5 pills to use as needed to bridge until efficacy with escitalopram. No refills will be submitted. If additional medication is needed, we will trial hydroxyzine for continuous use. Discussed ER protocol and recommend discontinuing medication immediately if SI/HI develops. Reiterated that increased anxiety can occur while titrating up on SSRI medication. Will see patient back in office in 2 weeks. Patient provided with psychiatry handout regarding to resources in the area. Recommend establishing care with psychiatrist for medication management or otherwise CBT therapy. Will send referral at patient's request if needed. Recommend calling office sooner if needed. Discussed ER protocol. # Low phosphorus level in ER blood work. Will repeat labs today to further evaluate. # Patient is to hold off on IV transfusions with hematology given concern for possible reaction. Would recommend managing anxiety prior to reinitiating transfusions. All questions answered to patients satisfaction. Patient verbalized understanding of diagnosis and treatments explained. To call sooner prior to next visit it any questions/concerns arise. Case discussed with collaborating physician Dr. Mccallum who reviewed the assessment and plan. Chart, medications, labs, vital signs reviewed. Dictation was accomplished with the use of [employer] voice recognition software, prone to medical misidentifications and grammatical errors. This is unintentional and the practitioner does try to identify and correct these, but some could still be present. Please do not hesitate to contact practitioner for clarification. 11/06/2024 Anxiety disorder with panic attacks (ICD-10 - F41.9) 11/13/2024 Chronic anemia (ICD-10 - D64.9) Steff is a pleasant 34-year-old female present today for follow-up. # Patient seen in the ER on 10/26/2024 for possible iron transfusion reaction. Patient reported increased jittery, shaking and shivering sensation. [place] increased chest pressure rated 8/10. Was given IV Benadryl. EKG within normal limits. Troponins negative. Chest xray negative. Low suspicion for ACS. Negative Perc criteria. Blood work revealed anemia and low phosphorus of 2.3. Phosphate replenished. Was discharged with recommendations to follow-up with primary. Will repeat CBC, CMP and phosphate. # Anxiety: Patient has been stable on sertraline 25 mg for the past few years. States she had self discontinued the medication after cutting without it for a few days and feeling overall well. As of recently, has had increased anxiety in her life regarding hematology referral and IV iron transfusions as well as a biopsy scheduled with [facility] in November to further evaluate for heavy menstruation. Patient has experienced ongoing panic attacks and increased anxiety daily had called. On-call service and spoke with Nydia Marmolejo PA-C who recommended to continue sertraline 25 mg daily and Ativan 1 mg as needed with recommendations to take a half tab for panic symptoms. Patient today reports that she previously took half of sertraline 25 mg daily and that 25 mg may be too much for her. Discussed the importance of daily use of sertraline in order for it to have full efficacy. Discussed how increased anxiety when initiating sertraline therapy can be normal or occur with intermittent use. Discussed the importance of daily compliance in order to build up and work effectively after at least 2 weeks. Discussed how full efficacy takes 6 to 8 weeks. Recommend to continue with Ativan use as needed for breakthrough panic attacks. Given patient's concern regarding continuation with sertraline, would recommend discontinuing altogether and switching to escitalopram. Will start low-dose escitalopram 5 mg and follow-up in 2 weeks for efficacy. Will refill Ativan for 5 tabs and recommend taking 1/2 tab as needed. Can repeat a half tab after 15-20 minutes if needed. Benzodiazepines can be habit-forming. Would not recommend every day use. Prescribing 5 pills to use as needed to bridge until efficacy with escitalopram. No refills will be submitted. If additional medication is needed, we will trial hydroxyzine for continuous use. Discussed ER protocol and recommend discontinuing medication immediately if SI/HI develops. Reiterated that increased anxiety can occur while titrating up on SSRI medication. Will see patient back in office in 2 weeks. Patient provided with psychiatry handout regarding to resources in the area. Recommend establishing care with psychiatrist for medication management or otherwise CBT therapy. Will send referral at patient's request if needed. Recommend calling office sooner if needed. Discussed ER protocol. 11/13/2024: Patient seen for follow up. At this time patient is endorsing nightmares that abruptly wake her from sleep as well as increased frequency of anxiety. Patient is not currently on medication for said anxiety and does not see anyone for therapy. Patient is to be seen tomorrow by [facility] tomorrow for evaluation of patient reported hypotenstion and chest tightness. Would recommend possible holter monitor as workup thus far has been negative including ER troponins, d-dimer, thyroid panel, EKG, bedside cardiac ultrasound, and chest xray. Will follow up in 2 weeks to discuss cardiology appointment. Was evaluated by online psych provider and states she was prescribed propanol and Buspar. Has not initiated as she felt this was not a good fit. Did discuss holding off on the escitalopram and recommend beginning hydroxyzine as needed. Recommend establishing care with in person psych such as [facility]. # Patient is to hold off on IV transfusions with hematology given concern for possible reaction. Would recommend managing anxiety prior to reinitiating transfusions. Recommend following hematology recommendations. All questions answered to patients satisfaction. Patient verbalized understanding of diagnosis and treatments explained. To call sooner prior to next visit it any questions/concerns arise. Case discussed with collaborating physician Dr. Mccallum who reviewed the assessment and plan. Chart, medications, labs, vital signs reviewed. Dictation was accomplished with the use of [employer] voice recognition software, prone to medical misidentifications and grammatical errors. This is unintentional and the practitioner does try to identify and correct these, but some could still be present. Please do not hesitate to contact practitioner for clarification. 11/21/2024 Chronic anemia (ICD-10 - D64.9) Steff is a pleasant 34-year-old female present today for follow-up. # Anxiety: Patient currently taking 0.3mL liquid sertaline, has been on current dose for 5 days. States she is tolerating the medication well. She has picked up hydroxyzine prescription from the pharmacy however has not taken it yet. She endorses improvement in sleep from 2 hours per night to 5-7 hours per night. Patient advised to continue on current regimen for a total of 7 days prior to increasing to 0.6 mL which is equivalent of 12.5 mg sertraline tab. Educated on importance to avoid abrupt discontinuation. Will continue to monitor. Recommended to switch back to po tablets if patient is compliant and tolerating sertraline 0.6 mL liquid. Recommend taking this for 6 weeks prior to reevaluating for dose increase. Will see cardio in December. Will schedule tilt table test per cardio. # History of abnormal thyroid panel, will repeat TSH, T3 and T4. 11/13/2024: Patient seen for follow up. At this time patient is endorsing nightmares that abruptly wake her from sleep as well as increased frequency of anxiety. Patient is not currently on medication for said anxiety and does not see anyone for therapy. Patient is to be seen tomorrow by [facility] tomorrow for evaluation of patient reported hypotenstion and chest tightness. Would recommend possible holter monitor as workup thus far has been negative including ER troponins, d-dimer, thyroid panel, EKG, bedside cardiac ultrasound, and chest xray. Will follow up in 2 weeks to discuss cardiology appointment. Was evaluated by online psych provider and states she was prescribed propanol and Buspar. Has not initiated as she felt this was not a good fit. Did discuss holding off on the escitalopram and recommend beginning hydroxyzine as needed. Recommend establishing care with in person psych such as [facility]. # Patient is to hold off on IV transfusions with hematology given concern for possible reaction. Would recommend managing anxiety prior to reinitiating transfusions. Recommend following hematology recommendations. All questions answered to patients satisfaction. Patient verbalized understanding of diagnosis and treatments explained. To call sooner prior to next visit it any questions/concerns arise. Case discussed with collaborating physician Dr. Mccallum who reviewed the assessment and plan. Chart, medications, labs, vital signs reviewed. Dictation was accomplished with the use of [employer] voice recognition software, prone to medical misidentifications and grammatical errors. This is unintentional and the practitioner does try to identify and correct these, but some could still be present. Please do not hesitate to contact practitioner for clarification. 11/21/2024 Anxiety disorder with panic attacks (ICD-10 - F41.9) Steff is a pleasant 34-year-old female present today for follow-up. # Anxiety: Patient currently taking 0.3mL liquid sertaline, has been on current dose for 5 days. States she is tolerating the medication well. She has picked up hydroxyzine prescription from the pharmacy however has not taken it yet. She endorses improvement in sleep from 2 hours per night to 5-7 hours per night. Patient advised to continue on current regimen for a total of 7 days prior to increasing to 0.6 mL which is equivalent of 12.5 mg sertraline tab. Educated on importance to avoid abrupt discontinuation. Will continue to monitor. Recommended to switch back to po tablets if patient is compliant and tolerating sertraline 0.6 mL liquid. Recommend taking this for 6 weeks prior to reevaluating for dose increase. Will see cardio in December. Will schedule tilt table test per cardio. # History of abnormal thyroid panel, will repeat TSH, T3 and T4. 11/13/2024: Patient seen for follow up. At this time patient is endorsing nightmares that abruptly wake her from sleep as well as increased frequency of anxiety. Patient is not currently on medication for said anxiety and does not see anyone for therapy. Patient is to be seen tomorrow by [facility] tomorrow for evaluation of patient reported hypotenstion and chest tightness. Would recommend possible holter monitor as workup thus far has been negative including ER troponins, d-dimer, thyroid panel, EKG, bedside cardiac ultrasound, and chest xray. Will follow up in 2 weeks to discuss cardiology appointment. Was evaluated by online psych provider and states she was prescribed propanol and Buspar. Has not initiated as she felt this was not a good fit. Did discuss holding off on the escitalopram and recommend beginning hydroxyzine as needed. Recommend establishing care with in person psych such as [facility]. # Patient is to hold off on IV transfusions with hematology given concern for possible reaction. Would recommend managing anxiety prior to reinitiating transfusions. Recommend following hematology recommendations. All questions answered to patients satisfaction. Patient verbalized understanding of diagnosis and treatments explained. To call sooner prior to next visit it any questions/concerns arise. Case discussed with collaborating physician Dr. Mccallum who reviewed the assessment and plan. Chart, medications, labs, vital signs reviewed. Dictation was accomplished with the use of [employer] voice recognition software, prone to medical misidentifications and grammatical errors. This is unintentional and the practitioner does try to identify and correct these, but some could still be present. Please do not hesitate to contact practitioner for clarification. 11/13/2024 Anxiety disorder with panic attacks (ICD-10 - F41.9) Steff is a pleasant 34-year-old female present today for follow-up. # Patient seen in the ER on 10/26/2024 for possible iron transfusion reaction. Patient reported increased jittery, shaking and shivering sensation. [place] increased chest pressure rated 8/10. Was given IV Benadryl. EKG within normal limits. Troponins negative. Chest xray negative. Low suspicion for ACS. Negative Perc criteria. Blood work revealed anemia and low phosphorus of 2.3. Phosphate replenished. Was discharged with recommendations to follow-up with primary. Will repeat CBC, CMP and phosphate. # Anxiety: Patient has been stable on sertraline 25 mg for the past few years. States she had self discontinued the medication after cutting without it for a few days and feeling overall well. As of recently, has had increased anxiety in her life regarding hematology referral and IV iron transfusions as well as a biopsy scheduled with [facility] in November to further evaluate for heavy menstruation. Patient has experienced ongoing panic attacks and increased anxiety daily had called. On-call service and spoke with Nydia Marmolejo PA-C who recommended to continue sertraline 25 mg daily and Ativan 1 mg as needed with recommendations to take a half tab for panic symptoms. Patient today reports that she previously took half of sertraline 25 mg daily and that 25 mg may be too much for her. Discussed the importance of daily use of sertraline in order for it to have full efficacy. Discussed how increased anxiety when initiating sertraline therapy can be normal or occur with intermittent use. Discussed the importance of daily compliance in order to build up and work effectively after at least 2 weeks. Discussed how full efficacy takes 6 to 8 weeks. Recommend to continue with Ativan use as needed for breakthrough panic attacks. Given patient's concern regarding continuation with sertraline, would recommend discontinuing altogether and switching to escitalopram. Will start low-dose escitalopram 5 mg and follow-up in 2 weeks for efficacy. Will refill Ativan for 5 tabs and recommend taking 1/2 tab as needed. Can repeat a half tab after 15-20 minutes if needed. Benzodiazepines can be habit-forming. Would not recommend every day use. Prescribing 5 pills to use as needed to bridge until efficacy with escitalopram. No refills will be submitted. If additional medication is needed, we will trial hydroxyzine for continuous use. Discussed ER protocol and recommend discontinuing medication immediately if SI/HI develops. Reiterated that increased anxiety can occur while titrating up on SSRI medication. Will see patient back in office in 2 weeks. Patient provided with psychiatry handout regarding to resources in the area. Recommend establishing care with psychiatrist for medication management or otherwise CBT therapy. Will send referral at patient's request if needed. Recommend calling office sooner if needed. Discussed ER protocol. 11/13/2024: Patient seen for follow up. At this time patient is endorsing nightmares that abruptly wake her from sleep as well as increased frequency of anxiety. Patient is not currently on medication for said anxiety and does not see anyone for therapy. Patient is to be seen tomorrow by [facility] tomorrow for evaluation of patient reported hypotenstion and chest tightness. Would recommend possible holter monitor as workup thus far has been negative including ER troponins, d-dimer, thyroid panel, EKG, bedside cardiac ultrasound, and chest xray. Will follow up in 2 weeks to discuss cardiology appointment. Was evaluated by online psych provider and states she was prescribed propanol and Buspar. Has not initiated as she felt this was not a good fit. Did discuss holding off on the escitalopram and recommend beginning hydroxyzine as needed. Recommend establishing care with in person psych such as [facility]. # Patient is to hold off on IV transfusions with hematology given concern for possible reaction. Would recommend managing anxiety prior to reinitiating transfusions. Recommend following hematology recommendations. All questions answered to patients satisfaction. Patient verbalized understanding of diagnosis and treatments explained. To call sooner prior to next visit it any questions/concerns arise. Case discussed with collaborating physician Dr. Mccallum who reviewed the assessment and plan. Chart, medications, labs, vital signs reviewed. Dictation was accomplished with the use of [employer] voice recognition software, prone to medical misidentifications and grammatical errors. This is unintentional and the practitioner does try to identify and correct these, but some could still be present. Please do not hesitate to contact practitioner for clarification. 11/21/2024 Encounter for examination of blood pressure without abnormal findings (ICD-10 - Z01.30) Steff is a pleasant 34-year-old female present today for follow-up. # Anxiety: Patient currently taking 0.3mL liquid sertaline, has been on current dose for 5 days. States she is tolerating the medication well. She has picked up hydroxyzine prescription from the pharmacy however has not taken it yet. She endorses improvement in sleep from 2 hours per night to 5-7 hours per night. Patient advised to continue on current regimen for a total of 7 days prior to increasing to 0.6 mL which is equivalent of 12.5 mg sertraline tab. Educated on importance to avoid abrupt discontinuation. Will continue to monitor. Recommended to switch back to po tablets if patient is compliant and tolerating sertraline 0.6 mL liquid. Recommend taking this for 6 weeks prior to reevaluating for dose increase. Will see cardio in December. Will schedule tilt table test per cardio. # History of abnormal thyroid panel, will repeat TSH, T3 and T4. 11/13/2024: Patient seen for follow up. At this time patient is endorsing nightmares that abruptly wake her from sleep as well as increased frequency of anxiety. Patient is not currently on medication for said anxiety and does not see anyone for therapy. Patient is to be seen tomorrow by [facility] tomorrow for evaluation of patient reported hypotenstion and chest tightness. Would recommend possible holter monitor as workup thus far has been negative including ER troponins, d-dimer, thyroid panel, EKG, bedside cardiac ultrasound, and chest xray. Will follow up in 2 weeks to discuss cardiology appointment. Was evaluated by online psych provider and states she was prescribed propanol and Buspar. Has not initiated as she felt this was not a good fit. Did discuss holding off on the escitalopram and recommend beginning hydroxyzine as needed. Recommend establishing care with in person psych such as [facility]. # Patient is to hold off on IV transfusions with hematology given concern for possible reaction. Would recommend managing anxiety prior to reinitiating transfusions. Recommend following hematology recommendations. All questions answered to patients satisfaction. Patient verbalized understanding of diagnosis and treatments explained. To call sooner prior to next visit it any questions/concerns arise. Case discussed with collaborating physician Dr. Mccallum who reviewed the assessment and plan. Chart, medications, labs, vital signs reviewed. Dictation was accomplished with the use of [employer] voice recognition software, prone to medical misidentifications and grammatical errors. This is unintentional and the practitioner does try to identify and correct these, but some could still be present. Please do not hesitate to contact practitioner for clarification. 11/01/2024 Chronic anemia (ICD-10 - D64.9) Steff is a pleasant 34-year-old female present today for hospital follow-up. # Patient seen in the ER on 10/26/2024 for possible iron transfusion reaction. Patient reported increased jittery, shaking and shivering sensation. [place] increased chest pressure rated 8/10. Was given IV Benadryl. EKG within normal limits. Troponins negative. Chest xray negative. Low suspicion for ACS. Negative Perc criteria. Blood work revealed anemia and low phosphorus of 2.3. Phosphate replenished. Was discharged with recommendations to follow-up with primary. Will repeat CBC, CMP and phosphate. # Anxiety: Patient has been stable on sertraline 25 mg for the past few years. States she had self discontinued the medication after cutting without it for a few days and feeling overall well. As of recently, has had increased anxiety in her life regarding hematology referral and IV iron transfusions as well as a biopsy scheduled with [facility] in November to further evaluate for heavy menstruation. Patient has experienced ongoing panic attacks and increased anxiety daily had called. On-call service and spoke with Nydia Marmolejo PA-C who recommended to continue sertraline 25 mg daily and Ativan 1 mg as needed with recommendations to take a half tab for panic symptoms. Patient today reports that she previously took half of sertraline 25 mg daily and that 25 mg may be too much for her. Discussed the importance of daily use of sertraline in order for it to have full efficacy. Discussed how increased anxiety when initiating sertraline therapy can be normal or occur with intermittent use. Discussed the importance of daily compliance in order to build up and work effectively after at least 2 weeks. Discussed how full efficacy takes 6 to 8 weeks. Recommend to continue with Ativan use as needed for breakthrough panic attacks. Given patient's concern regarding continuation with sertraline, would recommend discontinuing altogether and switching to escitalopram. Will start low-dose escitalopram 5 mg and follow-up in 2 weeks for efficacy. Will refill Ativan for 5 tabs and recommend taking 1/2 tab as needed. Can repeat a half tab after 15-20 minutes if needed. Benzodiazepines can be habit-forming. Would not recommend every day use. Prescribing 5 pills to use as needed to bridge until efficacy with escitalopram. No refills will be submitted. If additional medication is needed, we will trial hydroxyzine for continuous use. Discussed ER protocol and recommend discontinuing medication immediately if SI/HI develops. Reiterated that increased anxiety can occur while titrating up on SSRI medication. Will see patient back in office in 2 weeks. Patient provided with psychiatry handout regarding to resources in the area. Recommend establishing care with psychiatrist for medication management or otherwise CBT therapy. Will send referral at patient's request if needed. Recommend calling office sooner if needed. Discussed ER protocol. # Low phosphorus level in ER blood work. Will repeat labs today to further evaluate. # Patient is to hold off on IV transfusions with hematology given concern for possible reaction. Would recommend managing anxiety prior to reinitiating transfusions. All questions answered to patients satisfaction. Patient verbalized understanding of diagnosis and treatments explained. To call sooner prior to next visit it any questions/concerns arise. Case discussed with collaborating physician Dr. Mccallum who reviewed the assessment and plan. Chart, medications, labs, vital signs reviewed. Dictation was accomplished with the use of [employer] voice recognition software, prone to medical misidentifications and grammatical errors. This is unintentional and the practitioner does try to identify and correct these, but some could still be present. Please do not hesitate to contact practitioner for clarification. 11/13/2024 Encounter for examination of blood pressure without abnormal findings (ICD-10 - Z01.30) Steff is a pleasant 34-year-old female present today for follow-up. # Patient seen in the ER on 10/26/2024 for possible iron transfusion reaction. Patient reported increased jittery, shaking and shivering sensation. [place] increased chest pressure rated 8/10. Was given IV Benadryl. EKG within normal limits. Troponins negative. Chest xray negative. Low suspicion for ACS. Negative Perc criteria. Blood work revealed anemia and low phosphorus of 2.3. Phosphate replenished. Was discharged with recommendations to follow-up with primary. Will repeat CBC, CMP and phosphate. # Anxiety: Patient has been stable on sertraline 25 mg for the past few years. States she had self discontinued the medication after cutting without it for a few days and feeling overall well. As of recently, has had increased anxiety in her life regarding hematology referral and IV iron transfusions as well as a biopsy scheduled with [facility] in November to further evaluate for heavy menstruation. Patient has experienced ongoing panic attacks and increased anxiety daily had called. On-call service and spoke with Nydia Marmolejo PA-C who recommended to continue sertraline 25 mg daily and Ativan 1 mg as needed with recommendations to take a half tab for panic symptoms. Patient today reports that she previously took half of sertraline 25 mg daily and that 25 mg may be too much for her. Discussed the importance of daily use of sertraline in order for it to have full efficacy. Discussed how increased anxiety when initiating sertraline therapy can be normal or occur with intermittent use. Discussed the importance of daily compliance in order to build up and work effectively after at least 2 weeks. Discussed how full efficacy takes 6 to 8 weeks. Recommend to continue with Ativan use as needed for breakthrough panic attacks. Given patient's concern regarding continuation with sertraline, would recommend discontinuing altogether and switching to escitalopram. Will start low-dose escitalopram 5 mg and follow-up in 2 weeks for efficacy. Will refill Ativan for 5 tabs and recommend taking 1/2 tab as needed. Can repeat a half tab after 15-20 minutes if needed. Benzodiazepines can be habit-forming. Would not recommend every day use. Prescribing 5 pills to use as needed to bridge until efficacy with escitalopram. No refills will be submitted. If additional medication is needed, we will trial hydroxyzine for continuous use. Discussed ER protocol and recommend discontinuing medication immediately if SI/HI develops. Reiterated that increased anxiety can occur while titrating up on SSRI medication. Will see patient back in office in 2 weeks. Patient provided with psychiatry handout regarding to resources in the area. Recommend establishing care with psychiatrist for medication management or otherwise CBT therapy. Will send referral at patient's request if needed. Recommend calling office sooner if needed. Discussed ER protocol. 11/13/2024: Patient seen for follow up. At this time patient is endorsing nightmares that abruptly wake her from sleep as well as increased frequency of anxiety. Patient is not currently on medication for said anxiety and does not see anyone for therapy. Patient is to be seen tomorrow by [facility] tomorrow for evaluation of patient reported hypotenstion and chest tightness. Would recommend possible holter monitor as workup thus far has been negative including ER troponins, d-dimer, thyroid panel, EKG, bedside cardiac ultrasound, and chest xray. Will follow up in 2 weeks to discuss cardiology appointment. Was evaluated by online psych provider and states she was prescribed propanol and Buspar. Has not initiated as she felt this was not a good fit. Did discuss holding off on the escitalopram and recommend beginning hydroxyzine as needed. Recommend establishing care with in person psych such as [facility]. # Patient is to hold off on IV transfusions with hematology given concern for possible reaction. Would recommend managing anxiety prior to reinitiating transfusions. Recommend following hematology recommendations. All questions answered to patients satisfaction. Patient verbalized understanding of diagnosis and treatments explained. To call sooner prior to next visit it any questions/concerns arise. Case discussed with collaborating physician Dr. Mccallum who reviewed the assessment and plan. Chart, medications, labs, vital signs reviewed. Dictation was accomplished with the use of [employer] voice recognition software, prone to medical misidentifications and grammatical errors. This is unintentional and the practitioner does try to identify and correct these, but some could still be present. Please do not hesitate to contact practitioner for clarification. 09/15/2024 Anxiety, generalized (ICD-10 - F41.1) Steff is a pleasant 34-year-old female present today for CPE. #Anxiety: Has history of panic attacks. Currently managed on sertraline 25 mg p.o. once daily. States that she was previously 50 mg, but decreased dose approximately 4-5 months ago. Overall feels well. States she was not sure whether her palpitations and anxiety was really masked by her anemia. Would like to trial getting off of sertraline in a few months after possible IV iron infusions. #Anemia: Patient followed by [facility] and monitor with CBCs due to heavy periods. Has trialed oral iron supplements as well as iron enriched food and still has anemia present in blood work. Recently referred to [facility] hematology for further evaluation and possible iron infusions. Patient scheduled to be seen for consultation later this month. Reports dizziness, lightheadedness and palpitations as a result of the anemia. Recommend to continue with [facility] hematology recommendations. Discussed whether or not patient was a candidate per [facility] for oral contraceptives, but given patient's strong family history of breast cancer patient is not a candidate. #Right upper quadrant abdominal pain: Patient describes muscle twitch in the right upper quadrant with movement such as bending over. This has been acute on chronic for the past year and a half. This occurs intermittently at times. Denies any abdominal pain at rest or other symptoms such as nausea, vomiting, changes in bowel movements. Denies any aggravating factors such as eating meals. Patient reports that at times when bending over, she will feel a bulge in the right upper quadrant. Patient has no known history of hernias in the past. On exam patient's abdomen is unremarkable when lying supine as well as when standing. Most recent blood work revealed liver enzymes within normal limits. Patient denies any nausea, vomiting, pain aggravated by meals making gallbladder etiology less likely. Will order abdominal ultrasound for further evaluation regarding possible hernia. Discussed calling office sooner if symptoms worsen. Discussed ER protocol. #Prevention: Not up-to-date on influenza. Not up-to-date on COVID. Up-to-date on Tdap, 2020. Blood work all within normal limits aside from anemia which was addressed above. Patient unremarkable on physical exam. Plan to follow-up in 6 months and repeat labs. Will have patient obtain abdominal ultrasound at earliest convenience and will call regarding results. Will schedule follow-up sooner if indicated. Patient seen and examined. Comprehensive discussion was done on the following. 1. Nutrition: It is important to follow a healthy diet based on lots of vegetables and legumes and good fat. Avoid processed food and processed carbohydrates. Prepare your own meals. Read labels and avoid high fructose corn syrup, processed chemicals added to increase shelf life and preprepared meals. Avoid fast foods. Eat slowly and plan meals for a week. Try to count calories and be mindful off daily calorie intake. Get into the habit of keeping an eye on your weight by using an appropriate scale. Learn to log exercise and discussed fitness Apps like WalkMe which can help keep log off calories taken versus calories burned. Local food should be preferred. Discussed Dirty Dozen Versus Clean Fifteen. Discussed healthy supplements like fish oil, Tumeric, Curcumin, Melatonin, Resveratrol, Probiotics, Vitamin-D, Alpha-Lipoic acid, Vitamin-D and coconut oil. 2. It is important to exercise regularly. Is a good habit to walk at least 30 minutes a day. Gentle weightlifting with standard precautions to protect the back. Finding activity like cycling or hiking and get into the habit of engaging in it. Stretching before and after the exercises important. It is also important to contact me if there are any problems like shortness of breath, chest pain, back pain and joint or muscle pain associated with the exercise. 3. Discussed age appropriate screening guidelines. Colonoscopy needs to start at age 50 with stool for occult blood as appropriate. There is a new test that can test for genetic abnormalities in the stool sample, Cologuard. This would not replace a colonoscopy but could be used as a screening tool for patients who do not want a colonoscopy. We discussed the importance of early detection of colon cancer. 4. Discussed current guidelines with respect to breast examination, mammogram and pap smear for early detection of breast and cervical cancer. Patient advised to follow up with these appointments. 5. Discussed safe driving and no use of smart phone while driving 6. Age-appropriate immunizations were discussed. A tetanus booster is needed every 10 years. Flu vaccine is recommended every year just before the start of the flu season. Shingles vaccine is recommended after age 50 but not all insurances cover it. Pneumonia vaccine is given after age 65 unless there are certain comorbidities for which it is started earlier. 7. Diagnostic labs were discussed. These could include/not limited to CBC CMP and lipids with fasting blood glucose and insulin levels. Vitamin D and hemoglobin A1c testing might be appropriate. All questions answered to patients satisfaction. Patient verbalized understanding of diagnosis and treatments explained. To call sooner prior to next visit it any questions/concerns arise. Case discussed with collaborating physician Dr. Mccallum who reviewed the assessment and plan. Chart, medications, labs, vital signs reviewed. Dictation was accomplished with the use of [employer] voice recognition software, prone to medical misidentifications and grammatical errors. This is unintentional and the practitioner does try to identify and correct these, but some could still be present. Please do not hesitate to contact practitioner for clarification. 04/21/2024 Strep pharyngitis (ICD-10 - J02.0) Steff is a 33-year-old female present for urgent visit. # Strep pharyngitis: Resolved. Patient was on day 5 of penicillin use when she presented for urgent visit on 04/11. Prescribed Augmentin twice daily x 10 days. Patient reports not using this medication and instead finishing the full course of penicillin, which relieved symptoms. # Right ear otitis media: Patient self treated with Augmentin that was prescribed for strep. Has had 2 full days of Augmentin 875 mg twice daily with no symptom relief. Also taking Tylenol as needed for pain. Discussed that with recent antibiotic use, Augmentin is the best treatment for otitis media. Discussed that similar to strep throat, patient should take Augmentin for a full 5 days prior to deciding treatment failure. Plan for patient to continue antibiotic through the weekend with instruction to call the office by Wednesday if she has had no symptom improvement. Recommended to continue using Tylenol every 6 hours as needed. Will consider cefpodoxime 200 mg p.o. twice daily for 7 days. All questions answered to patients satisfaction. Patient verbalized understanding of diagnosis and treatments explained. To call sooner prior to next visit it any questions/concerns arise. Case discussed with collaborating physician Dr. Mccallum who reviewed the assessment and plan. Chart, medications, labs, vital signs reviewed. Dictation was accomplished with the use of [employer] voice recognition software, prone to medical misidentifications and grammatical errors. This is unintentional and the practitioner does try to identify and correct these, but some could still be present. Please do not hesitate to contact practitioner for clarification. 08/28/2024 Screening for diabetes mellitus (ICD-10 - Z13.1) 08/28/2024 Screening for thyroid disorder (ICD-10 - Z13.29) 09/15/2024 Chronic anemia (ICD-10 - D64.9) Steff is a pleasant 34-year-old female present today for CPE. #Anxiety: Has history of panic attacks. Currently managed on sertraline 25 mg p.o. once daily. States that she was previously 50 mg, but decreased dose approximately 4-5 months ago. Overall feels well. States she was not sure whether her palpitations and anxiety was really masked by her anemia. Would like to trial getting off of sertraline in a few months after possible IV iron infusions. #Anemia: Patient followed by [facility] and monitor with CBCs due to heavy periods. Has trialed oral iron supplements as well as iron enriched food and still has anemia present in blood work. Recently referred to [facility] hematology for further evaluation and possible iron infusions. Patient scheduled to be seen for consultation later this month. Reports dizziness, lightheadedness and palpitations as a result of the anemia. Recommend to continue with [facility] hematology recommendations. Discussed whether or not patient was a candidate per [facility] for oral contraceptives, but given patient's strong family history of breast cancer patient is not a candidate. #Right upper quadrant abdominal pain: Patient describes muscle twitch in the right upper quadrant with movement such as bending over. This has been acute on chronic for the past year and a half. This occurs intermittently at times. Denies any abdominal pain at rest or other symptoms such as nausea, vomiting, changes in bowel movements. Denies any aggravating factors such as eating meals. Patient reports that at times when bending over, she will feel a bulge in the right upper quadrant. Patient has no known history of hernias in the past. On exam patient's abdomen is unremarkable when lying supine as well as when standing. Most recent blood work revealed liver enzymes within normal limits. Patient denies any nausea, vomiting, pain aggravated by meals making gallbladder etiology less likely. Will order abdominal ultrasound for further evaluation regarding possible hernia. Discussed calling office sooner if symptoms worsen. Discussed ER protocol. #Prevention: Not up-to-date on influenza. Not up-to-date on COVID. Up-to-date on Tdap, 2020. Blood work all within normal limits aside from anemia which was addressed above. Patient unremarkable on physical exam. Plan to follow-up in 6 months and repeat labs. Will have patient obtain abdominal ultrasound at earliest convenience and will call regarding results. Will schedule follow-up sooner if indicated. Patient seen and examined. Comprehensive discussion was done on the following. 1. Nutrition: It is important to follow a healthy diet based on lots of vegetables and legumes and good fat. Avoid processed food and processed carbohydrates. Prepare your own meals. Read labels and avoid high fructose corn syrup, processed chemicals added to increase shelf life and preprepared meals. Avoid fast foods. Eat slowly and plan meals for a week. Try to count calories and be mindful off daily calorie intake. Get into the habit of keeping an eye on your weight by using an appropriate scale. Learn to log exercise and discussed fitness Apps like WalkMe which can help keep log off calories taken versus calories burned. Local food should be preferred. Discussed Dirty Dozen Versus Clean Fifteen. Discussed healthy supplements like fish oil, Tumeric, Curcumin, Melatonin, Resveratrol, Probiotics, Vitamin-D, Alpha-Lipoic acid, Vitamin-D and coconut oil. 2. It is important to exercise regularly. Is a good habit to walk at least 30 minutes a day. Gentle weightlifting with standard precautions to protect the back. Finding activity like cycling or hiking and get into the habit of engaging in it. Stretching before and after the exercises important. It is also important to contact me if there are any problems like shortness of breath, chest pain, back pain and joint or muscle pain associated with the exercise. 3. Discussed age appropriate screening guidelines. Colonoscopy needs to start at age 50 with stool for occult blood as appropriate. There is a new test that can test for genetic abnormalities in the stool sample, Cologuard. This would not replace a colonoscopy but could be used as a screening tool for patients who do not want a colonoscopy. We discussed the importance of early detection of colon cancer. 4. Discussed current guidelines with respect to breast examination, mammogram and pap smear for early detection of breast and cervical cancer. Patient advised to follow up with these appointments. 5. Discussed safe driving and no use of smart phone while driving 6. Age-appropriate immunizations were discussed. A tetanus booster is needed every 10 years. Flu vaccine is recommended every year just before the start of the flu season. Shingles vaccine is recommended after age 50 but not all insurances cover it. Pneumonia vaccine is given after age 65 unless there are certain comorbidities for which it is started earlier. 7. Diagnostic labs were discussed. These could include/not limited to CBC CMP and lipids with fasting blood glucose and insulin levels. Vitamin D and hemoglobin A1c testing might be appropriate. All questions answered to patients satisfaction. Patient verbalized understanding of diagnosis and treatments explained. To call sooner prior to next visit it any questions/concerns arise. Case discussed with collaborating physician Dr. Mccallum who reviewed the assessment and plan. Chart, medications, labs, vital signs reviewed. Dictation was accomplished with the use of [employer] voice recognition software, prone to medical misidentifications and grammatical errors. This is unintentional and the practitioner does try to identify and correct these, but some could still be present. Please do not hesitate to contact practitioner for clarification. 11/01/2024 Encounter for examination of blood pressure without abnormal findings (ICD-10 - Z01.30) Steff is a pleasant 34-year-old female present today for hospital follow-up. # Patient seen in the ER on 10/26/2024 for possible iron transfusion reaction. Patient reported increased jittery, shaking and shivering sensation. [place] increased chest pressure rated 8/10. Was given IV Benadryl. EKG within normal limits. Troponins negative. Chest xray negative. Low suspicion for ACS. Negative Perc criteria. Blood work revealed anemia and low phosphorus of 2.3. Phosphate replenished. Was discharged with recommendations to follow-up with primary. Will repeat CBC, CMP and phosphate. # Anxiety: Patient has been stable on sertraline 25 mg for the past few years. States she had self discontinued the medication after cutting without it for a few days and feeling overall well. As of recently, has had increased anxiety in her life regarding hematology referral and IV iron transfusions as well as a biopsy scheduled with [facility] in November to further evaluate for heavy menstruation. Patient has experienced ongoing panic attacks and increased anxiety daily had called. On-call service and spoke with Nydia Marmolejo PA-C who recommended to continue sertraline 25 mg daily and Ativan 1 mg as needed with recommendations to take a half tab for panic symptoms. Patient today reports that she previously took half of sertraline 25 mg daily and that 25 mg may be too much for her. Discussed the importance of daily use of sertraline in order for it to have full efficacy. Discussed how increased anxiety when initiating sertraline therapy can be normal or occur with intermittent use. Discussed the importance of daily compliance in order to build up and work effectively after at least 2 weeks. Discussed how full efficacy takes 6 to 8 weeks. Recommend to continue with Ativan use as needed for breakthrough panic attacks. Given patient's concern regarding continuation with sertraline, would recommend discontinuing altogether and switching to escitalopram. Will start low-dose escitalopram 5 mg and follow-up in 2 weeks for efficacy. Will refill Ativan for 5 tabs and recommend taking 1/2 tab as needed. Can repeat a half tab after 15-20 minutes if needed. Benzodiazepines can be habit-forming. Would not recommend every day use. Prescribing 5 pills to use as needed to bridge until efficacy with escitalopram. No refills will be submitted. If additional medication is needed, we will trial hydroxyzine for continuous use. Discussed ER protocol and recommend discontinuing medication immediately if SI/HI develops. Reiterated that increased anxiety can occur while titrating up on SSRI medication. Will see patient back in office in 2 weeks. Patient provided with psychiatry handout regarding to resources in the area. Recommend establishing care with psychiatrist for medication management or otherwise CBT therapy. Will send referral at patient's request if needed. Recommend calling office sooner if needed. Discussed ER protocol. # Low phosphorus level in ER blood work. Will repeat labs today to further evaluate. # Patient is to hold off on IV transfusions with hematology given concern for possible reaction. Would recommend managing anxiety prior to reinitiating transfusions. All questions answered to patients satisfaction. Patient verbalized understanding of diagnosis and treatments explained. To call sooner prior to next visit it any questions/concerns arise. Case discussed with collaborating physician Dr. Mccallum who reviewed the assessment and plan. Chart, medications, labs, vital signs reviewed. Dictation was accomplished with the use of [employer] voice recognition software, prone to medical misidentifications and grammatical errors. This is unintentional and the practitioner does try to identify and correct these, but some could still be present. Please do not hesitate to contact practitioner for clarification. 08/28/2024 Screening for lipid disorders (ICD-10 - Z13.220) 08/28/2024 Vitamin D deficiency (ICD-10 - E55.9) Plan Of Treatment Pending Test Test Name Order Date Echocardiogram 07/19/2019 MRI : Brain 11/19/2021 Holter Test 07/19/2019 25OH VITAMIN D 07/19/2019 CBC (COMPLETE BLOOD COUNT) 07/19/2019 COMPREHENSIVE METABOLIC PANEL 07/19/2019 HEMOGLOBIN A1C 07/19/2019 INSULIN 07/19/2019 LIPID PANEL 07/19/2019 T3, FREE 07/19/2019 T4, FREE 07/19/2019 TSH 07/19/2019 Phosphorus Level 11/01/2024 XR L-Spine 4+ Views 07/19/2019 COMPREHENSIVE METABOLIC PANEL 09/15/2024 CBC (INCLUDES DIFF/PLT) 09/15/2024 CBC (INCLUDES DIFF/PLT) 11/21/2024 HEMOGLOBIN A1c 09/13/2023 US Abdomen 09/15/2024 Hemoglobin [id number] 09/15/2024 TSH+T3+Free T4+T3 Free 11/21/2024 Next Appt Details Provider Name:JOEYMONA TIRSO, 11:00:00 AM, [address], [place], [address], Provider Name:AURA MARTUPA, 03/21/2025 10:00:00 AM, [address], [place], [address], Insurance Providers Payer Name Payer Address Payer Phone Subscriber Number Group Number Insured Name Patient Relationship to Insured Coverage Start Date Coverage End Date [employer] [address] [place] [id number] Steff Benton Self - patient is the insured Medical (General) History Medical History History ICD Code Anxiety F41.9 panic attacks anemia Surgical History Surgery Date(Month/Year) wisdom teeth extraction
--- OUTSIDE RECORDS SUMMARY | 2024-12-17 06:29 | XMS_ITS | Data Portability ---
Author Organization ANNABELLE Gonzalez fredi [address] Address [address] [place] [address] Assessment Encounter Date Assessment Date Assessment LastModified by Organization Details LastModified Time 04/05/2024 04/05/2024 Based on your Presentation, Exam, and Lab Testing you are being diagnosed with Strep Throat. Your Rapid Strep Test was positive. I am going to prescribe you and antibiotic to cover this infection. Please be sure to complete the full course of this antibiotic to prevent antibiotic resistance. It is also important to complete this antibiotic because this infection is what causes Scarlet Fever/Rheumatic Heart Disease. Antibiotics will typically take 4-5 days to start to work with symptom improvement. The following are my other recommendations to help with symptoms and is important for this diagnosis: 1. Do not share any food or drinks - strep is passed through direct saliva exchange (NOT IN THE AIR) 2. Change your toothbrush in 3-4 days so that you don't re-infect yourself after you complete the antibiotic. 3. Take Ibuprofen or Tylenol if you do not have any allergies to these medications. If you take a blood thinner you should not take NSAIDS like Ibuprofen. These medication will help with the inflammation in your respiratory tract which should help the cough. 4. Do not take any Cold Medications that have a Decongestant in it - this will dry out your throat and make the sore throat worse. 5. Drinking Hot Tea with honey can help coat and soothe your throat. 6. You would be considered contagious for the next 24-48 hours, or until fever resolves. I would be seen again if you develop any of the following symptoms. 1. Fever > 101.0 2. Stiff neck - where you can't turn your neck 3. Trouble swallowing your saliva - drooling 4. Swelling of a lymph node in your throat that is painful to touch 5. Difficulty breathing 6. Severe Headache Thank you for using [facility] today, please feel free to contact our office if you have any questions or concerns. venancio Not available 04/05/2024 17:53:57 Plan of Treatment Reminders Order Date Submit Date Provider Last Modified By Organization Details Last Modified Time Details Appointments None recorded. Lab rapid strep group A, throat 2023 venancio an[facility], [address] [place], [address], 17:53:59 Referral None recorded. Procedures None recorded. Surgeries None recorded. Imaging None recorded. Medication Orders penicillin V potassium 500 mg tablet 2023 [facility] #[id number], [address] [place], [address], 17:54:02 Patient TargetsNo targets recorded. Patient Instructions Encounter Date Encounter Id Patient Instructions Last Modified By Organization Details Last Modified Time 04/05/2024 [id number] strep throat: care instructions venancio Not available 04/05/2024 17:53:59 sore throat: car e instructions venancio Not available 04/05/2024 17:53:59 Reason for Referral None Reported. Results Created Date Observation Date Name Description Value Unit Range Abnormal Flag Note LastModifiedBy Organization Detail LastModifiedTime 04/05/20 24 04/05/2024 rapid strep group A, throa t Unknown Analyte positi ve Not Available [facility] [address] [place], [address], 04/05/2024 17:30:45 Result Notes None recorded. Problems Name Problem SNOMED Code Status Onset Date Resolution Date Notes Provider Name and Address Organization Details Recorded Time Sore throat 958930290 Active 2023 GABRIELLE CORTEZ, LLUVIA [address] [place], [address] , [place] - [facility] 17:53:24 Streptococcal sore throat 86666217 Active 2023 GABRIELLE CORTEZ NP [address] [place], [address] [facility] PA - [facility] 17:53:33 Problem Notes None recorded. Medical Equipment None Reported. Allergies No known drug allergies Medications Name Sig Start Date Stop Date Status Note LastModified by Organization Details LastModified Time penicillin V potassium 500 mg tablet Take 1 tablet twice a day by oral route for 10 days. 024 active Not Available Not Available Not Avai lable Vitals Date Recorded Body height Body mass index (BMI) Body weight Oxygen saturation Oxygen saturation in Arterial blood by Pulse oximetry Heart rate Respiratory rate Body temperature Systolic And Diastolic Provider Name and Address Organization Details Last Updated DateTime 167.64 cm 23.4 kg/m2 80004.8 9 g 99 % 99 % 82 /min 18 /min 98.6 [degF] 111/77 mm[Hg] Stephanie Garcia PA - [facility] 17:31:38 Social History Question Answer Notes LastModified by [employer] Details LastModified Time Tobacco Smoking Status Never Smoker Stephanie waterman PA - [facility] 04/05/2024 17:30:20 Have You Had A Flu Shot This Season? No Information not available 04/05/2024 If No, Would You Like A Flu Shot Today? No Information not available 04/05/2024 What Was The Date Of Your Most Recent Tobacco Screening? 04/05/2024 Information not available 04/05/2024 Have You Recently Traveled Abroad? No Information not available 04/05/2024 Sex: Unknown Functional Status Question Answer Note LastModified by [employer] Details LastModified Time Do you use any illicit or recreational drugs? No Information not available 04/05/2024 Do you or have you ever used any other forms of tobacco or nicotine? No Information not available 04/05/2024 What is your level of alcohol consumption? None Information not available 04/05/2024 Mental Status None recorded. Family History Relationship Description Onset Age of this Age Resolved Age Notes LastModified by Organization Details LastModified Time Father No current problems or disability Not available 04/05 17:30:09 Mother No current problems or disability Not available 04/05 17:30:09 Medical History No medical history recorded. Gynecological History Statement/Question Response Date of LMP 03/24/2024 Is there any chance of ? No LMP Approximate Obstetrics History GPAL:G 0 P 0 0 0 0 Past Encounters Encounter ID Performer Location Encounter Start Date Encounter Closed Date Diagnosis/Indication Diagnosis SNOMED-CT Code Diagnosis ICD10 Code Diagnosis Note [id number] [address] [place] [address] 11/28/2019 18:27:09 11/28/2019 19:10:28 [id number] [address] [place] [address] 03/06/2019 08:15:50 03/06/2019 08:59:15 [id number] [address] [place] [address] 03/23/2021 09:38:14 03/23/2021 10:41:40 [id number] ANNABELLE HALL [address] [place] [address] 04/05/2024 16:35:11 04/05/2024 17:56:23 Sore throat 799914240 J02.9 Streptococ zoya sore throat 41434694 J02.0 Health Concerns Section Related Observation LastModified by Organization Detai ls LastModified Time None Recorded Concern Status LastModified by Organization Details LastModified Time None Recorded Advance Directives Directive None Recorded Payers Insurance Date Sequence Insurance Name Policy Number Policy Grullon Covered Member ID Grullon Member ID Guarantor Name 04/29/2024 1 [facility] Paymentus PLAN (POS) Steff Benton [id number] Steff Benton 04/05/2024 1 DIANA (PPO) [id number] Kailash Benton [id number] Steff Flowernton Notes Date Note Type Note Provider Name and Address Organization Details Recorded Time 4 text/html Sore throatReported bypatient.Source of patient informationInformation obtained from patient; Patient arrived at Urgent Care ambulatory Location:throat Severity:moderate Quality:burning Onset/Timin days Associated Symptoms:no cough; no sputum production; no shortness of breath; no wheezing; no sinus pain; no vomiting; no nausea; No hoarseness Context:no sick contacts Modifying Factors:OTC medication GABRIELLE CORTEZ NP [address] [place], [address], [place] - [facility] 04/05/2024 17:54:22 OBGyn Episode No OBEpisode recorded.
--- NOTE | 2024-12-17 08:00 | ED_ITS ---
HPI - General Adult General Chief complaint: Vaginal Bleeding Stated complaint: Vaginal Bleeding Time Seen by Provider: 12/17/24 07:58 Source: patient and RN notes reviewed Mode of arrival: ambulatory Limitations: no limitations History of Present Illness ED Provider: Elise Erickson PA-C HPI narrative: This is a 02-eclu-apg-female, (1 miscarriage in 2020) who presents to the ER for evaluation of heavy menstrual bleeding which started at 11:00 p.m. last night. Patient states that on , December 14, patient had her normal menses, she states that since last night she has been passing large blood clots. She states that she has passed approximately 9-10 large blood clots. Patient states that she has a history of anemia, requiring iron transfusions, last one was in October however she had a significant adverse reaction, and developed anaphylaxis. She states that since then she has been experiencing heart palpitations which she is currently being followed for through Cardiology. She does report that she has had some lightheadedness and dizziness since the development of the worsening vaginal bleeding. She does report about 2 weeks ago she did have an endometrial biopsy due to heavy menses, which she reports was unremarkable. She sees [facility] OBGYN. She does report some abdominal cramping. No other complaints or concerns at this time. MD complaint: Heavy menstrual bleeding Onset (ago): hour(s) Radiation: non-radiation Relieving factors: none Exacerbating factors: none Associated symptoms: denies other symptoms Treatments prior to arrival: none Related Data Previous Rx's ?Medication ?Instructions ?Recorded medroxyprogesterone 10 mg tablet 10 mg PO BID 5 days # 10 tabs 12/17/24 (Provera) Allergies Allergy/AdvReac Type Severity Reaction Status Date / Time Gadolinium-Containing AdvReac Itching Verified 12/17/24 05:16 Contrast Medi iron AdvReac Anaphylaxis Verified 12/17/24 05:16 Review of Systems 2 Review of Systems: Yes all other systems are reviewed and are negative Constitutional: Constitutional: Reports as per HPI Physical Exam ED Vital Signs: Vital Signs - 24 hr 12/17/24 05:13 12/17/24 05:55 12/17/24 07:30 Temperature 97.8 F 98.2 F Pulse Rate 75 77 65 Respiratory Rate 18 16 16 Blood Pressure 91/59 L 105/55 L 105/62 Pulse Oximetry 100 97 99 Oxygen Delivery Method Room Air Room Air Room Air 12/17/24 09:43 12/17/24 10:39 12/17/24 10:48 Temperature Pulse Rate 78 84 76 Respiratory Rate 16 18 Blood Pressure 93/61 100/59 L 100/59 L Pulse Oximetry 100 100 Oxygen Delivery Method Room Air Room Air 12/17/24 10:49 12/17/24 10:50 12/17/24 13:31 Temperature Pulse Rate 78 70 86 Respiratory Rate 20 Blood Pressure 99/64 97/58 L 99/75 Pulse Oximetry 100 Oxygen Delivery Method Room Air 12/17/24 13:58 Temperature 98.0 F Pulse Rate 86 Respiratory Rate 26 H Blood Pressure 99/76 Pulse Oximetry 100 Oxygen Delivery Method Room Air BMI result Body Mass Index 30.7 Const General: cooperative, comfortable and no acute distress Orientation/consciousness: patient oriented x3 Limitations: no limitations HENMT Head: Yes normal to inspection, Yes normocephalic and Yes atraumatic Ears: hearing grossly normal bilaterally General nose exam: Normal external nose present Face and sinus: Yes normal facial exam Mouth: Normal oral and palatal mucosa present, oropharynx normal and moist mucous membranes Throat: Yes posterior oropharynx normal Eyes General: appearance normal, both eyes and all related structures Eyelids: Yes eyelids normal Conjunctivae: conjunctivae normal Sclerae: sclerae normal Pupils: Equal, round and reactive pupils present EOM: EOMs intact bilaterally Neck Neck: Yes normal visual inspection, Yes full ROM and Yes no lymphadenopathy Lymphatic: no lymphadenopathy noted Chest Chest palpation & inspection: normal inspection of the chest Resp Effort & Inspection: normal respiratory effort and able to speak in complete sentences Auscultation: clear to auscultation bilaterally, no crackles, no rales, no rhonchi and no wheezes Cardio Rate: regular rate Rhythm: regular rhythm Heart sounds: S1 normal heart sound present and S2 normal heart sound present GI Other: Mild suprapubic cramping on examination. Inspection: Yes normal to inspection Other: Pelvic examination performed with Angelique Martinez RN present at all times. Cervical os is closed, large, quarter-sized blood clot removed from vaginal canal, she does have active been vaginal bleeding still occurring. Skin General skin exam: no rashes or lesions noted Trauma: no lacerations or abrasions Wounds: no wounds Neuro General: patient oriented x3 and moves all extremities Cranial nerves: Yes Equal, round and reactive pupils present Extrem General: Yes normal to inspection Right upper extremity: normal to inspection Left upper extremity: normal to inspection Right lower extremity: normal to inspection Left lower extremity: normal to inspection Medications Administered Discontinued Medications Generic Name Dose Route Start Last Admin Trade Name Kerri PRN Reason Stop Dose Admin Lactated Ringer's 1,000 mls @ 999 mls/hr 12/17/24 09:47 12/17/24 12:55 Lr IV 12/17/24 10:47 Infused .Q1H1M ONE Infusion Medroxyprogesterone Acetate 10 mg 12/17/24 12:03 12/17/24 12:55 Medroxyprogesterone Acetate 5 Mg Tablet PO 12/17/24 12:04 10 mg ONCE ONE Administration Medical Decision Making Medical Decision Making [facility] Narrative: This is a 34-year-old female, a (1 miscarriage several years ago), who presents emergency department for evaluation of heavy menses which developed at 11:00 a.m. last night. Patient states that she developed her. On , which was the normal time that she should have gotten her period. She states that since 11:00 a.m. last night she has passed multiple large blood clots. She states that she has a history of heavy menses however states that this is very atypical of her. Patient initially arrived to the emergency room at 5:00 a.m., blood pressure 91/59, all other vital signs within normal limits. I assess patient at approximately 8:15 a.m. this morning. Patient is well-appearing, speaking in full sentences under no acute distress. Labs were obtained, H&H 11.0/34.4, chemistry revealing no significant electrolyte derangement. We have no previous labs for comparison. I did add on a beta quant as this was not initially on the blood work initially. Pelvic examination was performed, no obvious hemorrhage noted, will repeat CBC, as well as iron panel and TSH. Will also perform orthostatics. Also obtain pelvic ultrasound. 11:30AM - pelvic ultrasound normal. Trended H&H, hemoglobin and hematocrit decreased to 10.8/34.3, did obtain a iron panel, iron low at 25. Given that we have no OBGYN coverage here in the [facility] [place] today, I consulted with patient's OBGYN, Dr. Cota who is very familiar with this patient. Given that patient is hemodynamically stable, and H and H has not dropped significantly, we may be able to treat this outpatient with Provera 10 mg b.i.d. short-term. She did urge me to educate patient that if the bleeding continues, or worsens, that she must immediately go to [facility], to for further evaluation. I discussed overall workup today with patient at length. She is agreeable for starting on Provera. She does report some chest tightness, she does report that she has a history of anxiety. EKG was performed, normal sinus rhythm with no acute ischemic changes. She has no risk factors. Will start on Provera, given 1st dose here in the emergency department. Patient understands overall workup today and strict return precautions. Patient stable for discharge. Differential Diagnosis Differential Diagnoses: The differential diagnosis associated with the presentation includes Abnormal uterine bleeding, threatened , uterine fibroids, anemia Admission/Observation Consideration of admission/observation: Escalation of care including admission/observation considered Lab Data [facility] Lab Attestation statement: I reviewed the patient's lab results. See MDM and course 12/17/24 09:27 12/17/24 05:52 Labs: Lab Results 12/17/24 12/17/24 12/17/24 Range/Units 05:52 09:27 11:26 WBC 4.0 L 3.7 L (4.8-10.8) X10*3/uL RBC 4.07 L 4.01 L (4.20-5.50) X10*6/uL Hgb 11.0 L 10.8 L (12.0-16.0) g/dl Hct 34.4 L 34.3 L (37.0-47.0) % MCV 84.5 85.5 (80.0-98.0) fL MCH 27.0 26.9 L (27.0-33.0) pg MCHC 32.0 31.5 (31.0-35.0) g/dl RDW 16.0 16.1 H (11.0-16.0) % Plt Count 231 238 (160-400) X10*3/uL MPV 10.1 10.3 (9.4-12.3) fL Immature Gran % (Auto) 0.3 0.3 (0.0-0.4) % Neut % (Auto) 63.0 68.1 (45-73) % Lymph % (Auto) 28.3 25.8 (20-40) % Gonzales % (Auto) 6.6 4.8 (2-11) % Eos % (Auto) 1.0 0.5 (0-4) % Baso % (Auto) 0.8 0.5 (0-2) % Lymph # (Auto) 1.1 L 1.0 L (1.2-4.9) X10*3/uL Gonzales # (Auto) 0.3 0.2 (0.1-1.2) X10*3/uL Eos # (Auto) 0.0 0.0 (0.0-0.4) X10*3/uL Baso # (Auto) 0.0 0.0 (0.0-0.2) X10*3/uL Abs Immat Gran (auto) 0.01 0.01 (0.00-0.03) X10*3/uL Absolute Neuts (auto) 2.5 2.5 (2.0-8.3) x10*3/uL Absolute Nucleated RBC 0.000 0.000 (0.0-0.012) X10*3/uL Nucleated RBC % (auto) 0.0 0.0 (0.0-0.2) /100WBC Sodium 142 (135-145) mmol/L Potassium 4.3 (3.3-5.1) mmol/L Chloride 114 H (96-108) mmol/L Carbon Dioxide 18 L (22-29) mmol/L Anion Gap 14 (12-20) BUN 11 (9-16) mg/dL Creatinine 0.69 (0.5-1.4) mg/dL Estim Creat Clear Calc 117.3 Estimated GFR > 60 Random Glucose 88 (60-115) mg/dL Calcium 9.0 (8.4-10.2) mg/dL Iron 25 L (30-160) mcg/dL TIBC 328 (228-428) mcg/dL % Saturation 8 L (15-50) % Unsat Iron Binding 303 ug/dL Total Bilirubin 0.2 (0.0-1.0) mg/dL AST 22 (5-31) U/L ALT 11 (0-31) U/L Alkaline Phosphatase 52 (39-117) U/L Total Protein 7.6 (6.5-8.0) g/dL Albumin 4.4 (3.5-5.0) g/dL TSH 2.17 (0.32-4.0) uIU/mL Beta HCG, Quant < 2 mIU/mL Blood Type A Positive Antibody Screen NEGATIVE Independent Interpretation I performed an independent interpretation of an: EKG Interpretation: Normal sinus rhythm at a ventricular rate of 65 beats per minute, IL interval 174, QT QTC 444/461, no STEMI Radiology Impression Discussion of test interpretation with radiology: I have reviewed the radiologist's reading. Radiologist Impression: Findings: Transvaginal scanning performed. The uterus is 8.1 cm length. Normal myometrium. Endometrium 4.0 mm thickness. Right ovary 2.5 x 1.6 x 2.1 cm. Left ovary 2.9 x 1.9 x 2.8 cm. Normal color Doppler of both ovaries. No free fluid. IMPRESSION: No acute findings. This document has been electronically signed by: Gutierrez Allen MD on 12/17/2024 10:56:16 Dictated By: Gutierrez Allen MD Critical Care Time Critical Care Time Critical Care Time: Yes Total Critical Care Time: 40 Attestation: I have personally provided critical care time exclusive of time spent on separately billable procedures. Time includes review of lab data, radiology results, discussion with consultants, and monitoring for potential decompensation. Intervention performed as documented. Discharge Plan Discharge Clinical Impression: Vaginal bleeding Patient Disposition: Home, Self-Care Instructions: Abnormal (Dysfunctional) Uterine Bleeding (ED), Iron Rich Diet (ED) Additional Instructions: Frances were seen in the emergency department due to abnormal vaginal bleeding. Your blood work that we observed was stable. Your ultrasound was normal. Please rest for the next several days. I consulted with your OBGYN Dr. Cota who recommended starting on Provera 10 mg twice a day. This is a medication that will only be used temporarily, you need to follow-up with supervisor purification this week. Call to make an appointment. If you continue to have heavy menses, you need to go immediately to [place] [phone]. If any new or worsening symptoms occur including but not limited to severe dizziness, shortness for breath, worsening vaginal bleeding, please seek emergent care. Your iron levels are low, your primary care physician. Eating a diet with iron enriched foods can help with this. Prescriptions: New medroxyprogesterone [Provera] 10 mg tablet 10 mg PO BID 5 Days Qty: 10 0RF Referrals: Isatu Cota DO [Physician, [facility]] Interventions: ED Discharge Assessment Last Done: 12/17/24 13:58 Discharge Date/Time: 12/17/24 14:08 Print Language: Arabic
[2024-12-17 09:31] LABS: MANUAL DIFF FLAG NO
[2024-12-17 09:43] LABS: Hematocrit 34.3 % (37.0-47.0); Hemoglobin 10.8 g/dl (12.0-16.0); Imm Gran Abs Auto 0.01 X10*3/uL (0.00-0.03); Imm Gran Pct Auto 0.3 % (0.0-0.4); Lymphocytes Absolute Auto 1.0 X10*3/uL (1.2-4.9); Mean Corpuscular HGB Conc 31.5 g/dl (31.0-35.0); Mean Corpuscular Hemoglobin 26.9 pg (27.0-33.0); Mean Corpuscular Volume 85.5 fL (80.0-98.0); NRBC Abs Auto 0.000 X10*3/uL (0.0-0.012); NRBC Pct Auto 0.0 /100WBC (0.0-0.2); Platelet Count 238 X10*3/uL (160-400); Red Blood Count 4.01 X10*6/uL (4.20-5.50); White Blood Count 3.7 X10*3/uL (4.8-10.8)
[2024-12-17 09:53] LABS: Iron 25 mcg/dL (30-160); Percent Iron Saturation 8 % (15-50); Total Iron Binding Capacity 328 mcg/dL (228-428); Unsaturated Iron Binding 303 ug/dL
[2024-12-17] MEDS: Lactated Ringers 1,000 ML 999 ML IV (10:38)
--- NOTE | 2024-12-17 12:04 | ECG_ITS ---
Test Reason : CP Blood Pressure : */* mmHG Vent. Rate : 65 BPM Atrial Rate : 65 BPM P-R Int : 174 ms QRS Dur : 78 ms QT Int : 444 ms P-R-T Axes : 52 65 36 degrees QTcB Int : 461 ms Normal sinus rhythm Normal ECG No previous ECGs available Referred By: Elise Erickson Electronically Signed By: CHEVY HOPPER
== END 2024-12-17 14:08 | disposition home or self-care (01) ==
PROVIDERS: Physician Assistant Medical; Emergency Provider Emergency Medicine
DX: N92.0 Excessive and frequent menstruation with regular cycle (principal); R10.2 Pelvic and perineal pain; R07.89 Other chest pain; R11.0 Nausea; Z79.899 Other long term (current) drug therapy
CPT/HCPCS: 36415; 76830; 76856; 80053; 83540; 84443; 84702; 85025; 86850; 86900; 86901; 93005; 96360; 96361; 99285; 99291; J7120

== ENCOUNTER → 2024-12-17 09:07 | Outpatient (BNV) | payer OTHER, SELFPAY | PROVIDERS: Emergency Provider Emergency Medicine; Visit Provider Radiology Vascular & Interventional Radiology | DX: N93.9 Abnormal uterine and vaginal bleeding, unspecified (principal) | CPT/HCPCS: 76830; 76856 ==

== ENCOUNTER → 2024-12-17 12:04 | Outpatient (BNV) | payer OTHER, SELFPAY | PROVIDERS: Emergency Provider Emergency Medicine; Visit Provider Internal Medicine | DX: R07.9 Chest pain, unspecified (principal) | CPT/HCPCS: 93010 ==

== ENCOUNTER 2025-04-09 11:15 | Outpatient (AMB) | payer OTHER, SELFPAY ==
--- OUTSIDE RECORDS SUMMARY | 2024-12-13 04:30 | XMS_ITS ---
Author Organization [facility] [address] [address] Address [address] [place] [address] Care Team Providers Care Plaster Helper Name Role Phone AURA MARTINEZ Unavailable [phone] ADRIANO CHAHAL Unavailable [phone] REASON FOR VISIT salivia results Encounters Encounter Location Date Provider Diagnosis [facility] [address] [place] [address] 12/13/2024 ADRIANO CHAHAL Plan Of Treatment Next Appt Details Provider Name:ADRIANO CHAHAL, 09:15:00 AM, [address], [place], [address], Provider Name:AURA MARTINEZ, 05/22/2025 09:30:00 AM, [address], [place], [address], Progress Notes * BENTONSteff REGALADODOB: [birth year] (34 yo F)Acc No.[id number]:12/13/2024 Progress Notes Patient: tSeff DAMICO Provider: Lencho CHAHAL MD :1990 A ge:34 Y S ex:Female Date:12/13/2024 Address:[address] [place], [place] [id number] Subjective: * Chief Complaints: * 1 . Salivia results. * Medical History: Objective: * Vitals: Assessment: Plan: * Treatment: * Images: Billing Information: * Visit Code: * Procedure Codes: Care Plan Details* * Electronic signature of ДМИТРИЙ CHAHAL on 04/09/2025 at 02:19 PM EST Sign off status: Pending * Provider: Lencho CHAHAL MD Date: 0 12/13/2024 Generated for Manisha tran/John/Jodi on: 1 06/09/2024 02:19 PM EST
--- OUTSIDE RECORDS SUMMARY | 2024-12-27 03:00 | XMS_ITS ---
Author Organization [facility] [address] Address [address] [place] [address] Care Team Providers Care Mis Director Name Role Phone AURA MARTINEZ Unavailable [phone] REASON FOR VISIT [place] Encounters Encounter Location Date Provider Diagnosis [facility] [address] [place] [address] 12/27/2024 AURA MARTINEZ Plan Of Treatment Next Appt Details Provider Name:ADRIANO CHAHAL, 09:15:00 AM, [address], [place], [address], Provider Name:AURA MARTINEZ, 05/22/2025 09:30:00 AM, [address], [place], [address], Progress Notes * Steff BENTONDOB: [birth year] (34 yo F)Acc No.[id number]:12/27/2024 Progress Note Patient: Steff DAMICO Provider: Barbara MARTINEZ PA-C :1990 A ge:34 Y S ex:Female Date:12/27/2024 Address:[address] [place], [place] [phone] Subjective: * Chief Complaints: * 1 . [place]. * Medical History: Objective: * Vitals: Assessment: Plan: * Treatment: * Images: Billing Information: * Visit Code: * Procedure Codes: * Electronic signature of HERNAN MARTINEZ PA-C, [id number] on 04/09/2025 at 02:19 PM EST Sign off status: Pending * Provider: Barbara MARTINEZ PA-C Date: 0 12/27/2024 Generated for Manisha tran/John/Jodi on: 1 06/09/2024 02:19 PM EST
--- OUTSIDE RECORDS SUMMARY | 2025-03-21 05:00 | XMS_ITS ---
Author Organization [facility] [address] Address [address] [place] [address] Care Team Providers Care Manager Non Profit Name Role Phone AURA MARTINEZ Unavailable [phone] REASON FOR VISIT 6 month f/u Encounters Encounter Location Date Provider Diagnosis [facility] [address] [place] [address] 03/21/2025 AURA MARTINEZ Plan Of Treatment Next Appt Details Provider Name:ADRIANO CHAHAL, 09:15:00 AM, [address], [place], [address], Provider Name:AURA MARTINEZ, 05/22/2025 09:30:00 AM, [address], [place], [address], Progress Notes * Steff BENTONDOB: [birth year] (34 yo F)Acc No.[id number]:03/21/2025 Progress Notes Patient: Steff DAMICO Provider: Barbara MARTINEZ PA-C :1990 A ge:34 Y S ex:Female Date:03/21/2025 Address:[address] [place], [place] [id number] Subjective: * Chief Complaints: * 1 . 6 month f/u. * Medical History: Objective: * Vitals: Assessment: Plan: * Treatment: * Images: Billing Information: * Visit Code: * Procedure Codes: Care Plan Details* * Electronic signature of HERNAN MARTINEZ PA-C, [id number] on 04/09/2025 at 02:19 PM EST Sign off status: Pending * Provider: Barbara MARTINEZ PA-C Date: 1 Generated for Manisha tran/John/Jodi on: 1 06/09/2024 02:19 PM EST
--- NOTE | 2025-04-09 11:34 | A.OFFVIS_ITS ---
Vital Signs 04/09/25 12:02 Height 5 ft 6 in Weight 145 lb BMI 23.4 BP 132/88 Intake Visit Reasons: headache Allergies Gadolinium-Containing Contrast Medi Adverse Reaction (Verified 12/17/24 05:16) Itching iron Adverse Reaction (Verified 12/17/24 05:16) Anaphylaxis HPI Comments Details: The patient is a 34-year-old female presenting with evaluation and management of migraine headaches and orthostatic hypotension. The patient has longstanding Postural Orthostatic Tachycardia Syndrome (POTS) with associated orthostatic hypotension documented via a tilt table test, where the lowest recorded blood pressure was 50/36 mmHg. Symptoms include dizziness and syncope, sometimes associated with rapid positional changes. Despite increased dietary sodium intake and electrolyte supplementation, the patient reports periodic low blood pressure episodes without clear triggers. She also reports migraine headaches usually occurring once a week with features such as throbbing pain and photophobia. These headaches are often around the restorationism and eye area, lasting for hours, and were initially managed with [id number]-saf-[id number] analgesics without significant relief using prescription medications. Associated systemic and ocular symptoms were acknowledged. Chronic iron deficiency anemia has been managed with oral iron supplements after an adverse reaction to iron infusion therapy. The patient historically has had low hemoglobin levels, requiring dietary compensation and identifies no dietary iron absorption issues. Anxiety has been managed pharmacologically with sertraline, prescribed for generalized anxiety disorder, and contributes to their overall medical profile without significant interference with episodic dizziness. Review of Systems Narrative Constitutional:? Has gained some, Weight and complain of fatigue and malaise. HEENT:?No headache, vision changes, hearing loss, nasal congestion, sore throat. Cardiovascular:? Has palpitation and dizziness lightheaded type of symptoms. Respiratory:? Has some shortness of breath. Gastrointestinal:? Has nausea. Genitourinary:?No dysuria, frequency, incontinence, or hematuria. Musculoskeletal:? Has back pain and neck pain. Neurological:? Complain of numbness and tingling, headaches, problem with sleeping, dizziness and cold intolerance. Psychiatric:? Has anxiety. Endocrine:?No heat/cold intolerance, polydipsia, polyuria, or hair/skin changes. Hematologic/Lymphatic:? Has noted some bruising. Integumentary (Skin):?No rash, lesions, itching, or color changes. Allergic/Immunologic:?No seasonal allergies, hives, or recurrent infections. Assessment & Plan Assessment & Plan (1) Migraine without aura: Comment: MRI brain WO at [facility] in 2021: WNL Code(s): G43.009 - Migraine without aura, not intractable, without status migrainosus Category: Medical Qualifiers: Status migrainosus presence: without status migrainosus Intractability: not intractable Qualified Code(s): G43.009 - Migraine without aura, not intractable, without status migrainosus (2) Dysautonomia: Comment: Tilt table test at [facility] in November 2024: Minimum BP 56/40 Code(s): G90.1 - Familial dysautonomia [] Category: Medical (3) Orthostatic hypotension: Code(s): I95.1 - Orthostatic hypotension Category: Medical Plan Impression: a: Migraine w/o aura b: Dysautonomia causing orthostatic dizziness and syncope c: Underlying chronic iron def enemia associated with mennorhygia Rec: a: Education b: Sumatriptan 50mg one a day as needed c: Non medicinal means to manage low BP. Medications: New sumatriptan succinate 50 mg orally qd prn for headache PRN; do not exceed 4 doses per 24 hrs 10 tabs 5RF migraine headache Coding Level of Care Code New Pt Level 5 (18218) Diagnoses Migraine without aura and without status migrainosus, not intractable G43.009 Status migrainosus presence: without status migrainosus Intractability: not intractable Dysautonomia G90.1 Orthostatic hypotension I95.1
[2025-04-09 12:02] VITALS: BP 132/88; BMI 23.4
--- OUTSIDE RECORDS SUMMARY | 2025-04-09 14:19 | XMS_ITS | Data Portability ---
Author Organization ANNABELLE Gonzalez fredi [address] Address [address] [place] [address] Assessment Encounter Date Assessment Date Assessment LastModified [...] strep group A, throat 2023 venancio anr [facility], [address] [place], [address], 17:53:59 Referral None recorded. Procedures None recorded. Surgeries None recorded. Imaging None recorded. Medication Orders penicillin V potassium [address] [id number], [address] [place], [address], 17:54:02 Patient TargetsNo targets recorded. Patient Instructions Encounter Date Encounter Id Patient Instructions Last Modified By Organization Details Last Modified Time 04/05/2024 [id number] strep throat: care instructions venancio Not available 04/05/2024 17:53:59 sore throat: car e instructions venancio Not available 04/05/2024 17:53:59 Reason for Referral None Reported. Results Created Date Observation Date Name Description Value Unit Range Abnormal Flag Note LastModifiedBy Organization Detail LastModifiedTime 04/05/20 24 04/05/2024 rapid strep group A, throa t Unknown Analyte positi ve Not Available [facility] [address] [place], [address], 04/05/2024 17:30:45 Result Notes None recorded. Problems Name Problem SNOMED Code Status Onset Date Resolution Date Notes Provider Name and Address Organization Details Recorded Time Sore throat 675815060 Active 2023 GABRIELLE CORTEZ, LLUVIA [address] [place], [address] , [place] - [facility] 17:53:24 Streptococcal sore throat 52353976 Active 2023 GABRIELLE CORTEZ NP [address] [place], [address] [facility] [place] - [facility] 17:53:33 Problem Notes [...] saturation in Arterial blood by Pulse oximetry Pain severity - 0-10 verbal numeric rating [Score] - Reported Heart rate Respiratory rate Body temperature Systolic And Diastolic Provider Name and Address Organization Details Last Updated DateTime 167.64 cm 23.4 kg/m2 70877.8 9 g 99 % 99 % 0 82 /min 18 /min 98.6 [degF] 111/77 mm[Hg] Stephanie Garcia [place] - [facility] 17:31:38 Social History Question Answer Notes LastModified by Organizat ion Details LastModified Time Tobacco Smoking Status Never [...] Functional Status Question Answer Note LastModified by Organizat ion Details LastModified Time Do you use any [...] Diagnosis SNOMED-CT Code Diagnosis ICD10 Code Diagnosis IMO Codes Diagnosis Note [id number] [address] [place] [address] 11/28/2019 18:27:09 11/28/2019 19:10:28 [id number] [address] [place] [address] 03/06/2019 08:15:50 03/06/2019 08:59:15 [id number] [address] [place] [address] 03/23/2021 09:38:14 03/23/2021 10:41:40 [id number] ANNABELLE HALL [address] [place] [address] 04/05/2024 16:35:11 04/05/2024 17:56:23 Sore throat 425979387 J02.9 Streptococ zoya sore throat 77083421 J02.0 Health Concerns Section Related Observation LastModified by Organization Detai ls LastModified Time None Recorded Concern Status LastModified by Organization Details LastModified Time None Recorded Advance Directives Directive None Recorded Payers Insurance Date Sequence Insurance Name Policy Number Policy Grullon Covered Member ID Grullon Member ID Guarantor Name 04/29/2024 1 [email or web address] PL[employer] (POS) Steff Benton [id number] Steff Flowernton 04/05/2024 1 DIANA (PPO) [id number] Kailash Benton [id number] Steff Benton Notes Date Note Type Note Provider Name and Address Organization Details Recorded Time 04/05/2024 text/html Sore throatRepor anna by PatientSore ThroatFor source of patient information, patient reportsinformation obtained from patientandpatient arrived at urgent care ambulatory. For location, patient reportsthroat. For severity, patient reportsmoderate. For quality, patient reportsburning. For onset/timing, patient reports5 days. For associated symptoms, patient reportsno cough,no sputum production,no shortness of breath,no wheezing,no sinus pain,no vomiting,no nausea, andno hoarseness. For context, patient reportsno sick contacts. For modifying factors, patient reportsotc medication __. GABRIELLE CORTEZ NP [address] [place], [address], [place] - [facility] 04/05/2024 17:54:22 OBGyn Episode No OBEpisode recorded.
--- OUTSIDE RECORDS SUMMARY | 2025-04-09 14:19 | XMS_ITS | Encounter Summary ---
Author Organization [facility] Address [facility] [address] [place] [address] Phone Care Team Providers Care Panel Edge Sealer Name Role Phone Violetta Mccallum MD Primary Care Provider [phone] Gregory Phan DMD, MD Unavailable + [phone] Encounter Details Date Type Department Care Team (Late st Contact Info) Description 06/12/2022 Procedure Pass [facility] [address] [place] [address] Social History Tobacco Use Types Packs/Day Years Used Date Smoking Tobacco: Never Smokeless Tobacco: Never Alcohol Use Standard Drinks/Week Comments Never 0 (1 standard drink = 0.6 oz pur e alcohol) Comments Unknown Sex and Gender Information Value Date Recorded Sex Assigned at Female 03/14/2020 12:41 PM EDT Legal Sex Female 12:26 PM EDT Gender Identity Female 03/14/2020 12:41 PM EDT Sexual Orientation Straight 03/14/2020 12 :41 PM EDT documented as of this encounter Plan of Treatment Upcoming Encounters Date Type Department Care Team (Late st Contact Info) Description 12/10/2025 12:00 PM EDT Office Visit [facility] [address] [place] [address] Shiloh Loaiza MD [address] [facility], [address] [place], [place] [id number] [email or web address] documented as of this encounter Visit Diagnoses Not on filedocumented in this encounter Additional Health Concerns Infection Onset Date Last Indicated Resolved Time CoV-Risk 07/23/2023 07/23/2023 08/03/2023 1:23 AM EST documented as of this encounter Care Teams Panel Edge Sealer Relationship Specialty Start Date End Date Violetta Mccallum MD [address] [place] [address] PCP - General Internal Medicine 09/17/21 Gregory Phan DMD, MD [address] [place] [phone] [email or web address] secretary bookkeeper 09/30/22 documented as of this encounter Additional Source Comments The information contained in this document represents components of the legal health record. It is not the complete legal health record.[facility]
--- OUTSIDE RECORDS SUMMARY | 2025-04-09 14:19 | XMS_ITS | Clinical Summary ---
Author Organization [facility] Address [address] [place] [address] Phone Care Team Providers Care Pt Escort Name Role Phone Violetta Mccallum MD Primary Care Provider Gregory Phan DMD, MD Unavailable Allergies No known active allergies Medications sertraline (ZOLOFT) 50 MG tablet 1 tablet. 11/24/2021 Active fluticasone propionate (FLONASE) 50 mcg/actuation nasal sprayIndications: Acute upper respiratory infection 1 spray by Nasal route daily for 14 days. 9.9 mL 07/23/2023 Active Active Problems No known active problems Family History Medical History Relation Comments Breast cancer Mother Breast cancer Sister Relation Status Comments Mother Sister Social History Tobacco Use Types Packs/Day Years Used Date Smoking Tobacco: Never Smokeless Tobacco: Never Tobacco Cessation:Counseling Given: Not Answered Alcohol Use Standard Drinks/Week Comments Never 0 (1 standard drink = 0.6 oz pur e alcohol) Education Answer Date Recorded Are you interested in more education? Not on joann e 10/02/2022 Are you concerned about learning? Not on file 10/02/2022 No 10/02/2022 No 10/02/2022 Food Answer Date Recorded Within the past 6 months we worried whether our food would run out before we got money to buy more. Never True 11/06/2024 Within the past 6 months the food we bought just didn't last and we didn't have enough money to get more. Never True Residential Stability Answer Date Recor ded What is your housing situation today? I have ramesh covington 11/06/2024 How many times have you move d in the past 12 months? Zero (I did not move) 11/06/2024 Paying for Meds Answer Date Recorded Do you have trouble paying for medicines? No 11/06/2024 Paying Utility Bills Answer Date Record ed Do you have trouble paying your heating or elect ricity bill? No 11/06/2024 Transportation Answer Date Recorded Has the lack of transportati on kept you from medical appointments or from getting medications? No 11/06/2024 Digital Access Answer Date Recorded No 11/06/2024 Yes 11/06/2024 Do you have reliable internet access at home? Ye s 11/06/2024 Do you have a device (e.g., phone, tablet, computer) with a working camera? Yes 11/06/2024 Intimate Partner Violence Answer Date R ecorded Are you denied basic needs s uch as food, clothing, or medical care? No 11/06/2024 In the past 12 months have y ou been in a relationship with a person who hurts, threatens, or tries to control you? No 11/06/2024 Are you denied basic needs s uch as food, clothing, or medical care? No 11/06/2024 In the past 12 months have y ou been in a relationship with a person who hurts, threatens, or tries to control you? No 11/06/2024 Comments No Sex and Gender Information Value Date Recorded Sex Assigned at Female 03/14/2020 12:41 PM EDT Legal Sex Female 12:26 PM EDT Gender Identity Female 03/14/2020 12:41 PM EDT Sexual Orientation Straight 03/14/2020 12 :41 PM EDT Last Filed Vital Signs Vital Sign Reading Time Taken Comments Blood Pressure 108/72 11/06/2024 6:10 PM EDT Pulse 84 11/06/2024 6:10 PM EDT Temperature 36.4 C (97.5 F) 11/06/2024 6:10 PM EDT Respiratory Rate 16 11/06/2024 6:10 PM EDT Oxygen Saturation 100% 11/06/2024 6:10 PM EDT Inhaled Oxygen Concentration - - Weight 65.8 kg (145 lb) 10/26/2024 2:54 PM EDT Height 162.6 cm (5' 4 ) 10/26/2024 2:54 PM EDT Body Mass Index 24.89 10/26/2024 2:54 PM EDT Plan of Treatment Upcoming Encounters Date Type Department Care Team (Late st Contact Info) Description 12/10/2025 12:00 PM EDT Office Visit [facility] Medicine [address] [place] [address] Shiloh Loaiza MD 234 [facility], [address] [place] [address] [email or web address] Due Date Last Done Comments DEPRESSION SCREENING 2001 HEPATITIS C SCREENING 2007 HIV ONE-TIME SCREENING (18-6 5 YEARS) 2007 PAP SMEAR 07/26/2021 07/26/2018 INFLUENZA VACCINE (#1) 2025 04/12/2019 COVID-19 VACCINE (3 - 2024-2 6 season) 2025 01/28/2021, 01/07/2021 Adult Td,Tdap Booster 09/09/2030 09/09/2020 , 11/22/2018 SMOKING STATUS SCREENING (On ce After 26 Yrs) Completed 07/23/2023 HEPATITIS A VACCINES Aged Out No long er eligible based on patient's age to complete this topic HIB VACCINES Aged Out No longer eligi ble based on patient's age to complete this topic MENINGOCOCCAL VACCINES (ACWY) Aged Out No longer eligible based on patient's age to complete this topic MENINGOCOCCAL VACCINES (B) Aged Out N o longer eligible based on patient's age to complete this topic PNEUMOCOCCAL VACCINES (0-49 years) Aged Out No longer eligible b ased on patient's age to complete this topic Medical Devices Not on file Insurance [facility] EXPLORER POS [employer] EXPLORER POS [employer] EXPLORER POS [employer] EXPLORER POS [facility] EXPLORER POS Member Subscriber Plan / Payer ([facility] 12/06/2023-) Name:Steff Benton Relation to Subscriber:Self Name:tSeff Benton Payer ID:[id number] (NA) Group ID:Not on file Type:POS Address: [facility] [id number] [place] [address] [facility] EXPLORER POS Member Subscriber Plan / Payer ([facility] 12/06/2023-) Name:Steff Benton Relation to Subscriber:Self Name:Steff Benton Payer ID:[id number] (NA) Group ID:Not on file Type:POS Address: [facility] [id number] [place] [address] Care Teams Pt Escort Relationship Specialty Start Date End Date Violetta Mccallum MD [address] [place] [address] PCP - General Internal Medicine 09/17/21 Gregory Phan DMD, MD [address] [place] [phone] [email or web address] program director 09/30/22 Additional Source Comments The information contained in this document represents components of the legal health record. It is not the complete legal health record.[facility]
--- OUTSIDE RECORDS SUMMARY | 2025-04-09 14:19 | XMS_ITS | Encounter Summary ---
Author Organization [place] [address] Care Team Providers Care Cuffing Machine Operator Name Role Phone Souleymane Mccallum MD Primary Care Provider [phone] Reason for Visit * Reason Onset Date Comments Appointment 01/18/2025 Coronary CTA Encounter Details Date Type Department Care Team (Late st Contact Info) Description 01/18/2025 Telephone [facility] [address] [place] [address] Alfredito Echevarria MD [address] [place] [address] [address] [place] [address] Social History Tobacco Use Types Packs/Day Years [...] on file documented as of this encounter Progress Notes * Alfredito Echevarria MD - 04/05/2025 4:04 PM EDT Called the pt and sent RX to pharmacy for pre meds left message with patient * Opal Jenkins - 04/05/2025 9:56 AM EDT Please see pt's CTA scan appt below. Pt has contrast allergy. Please order pre- meds and call pt with instructions. * Opal Jenkins - 04/05/2025 9:38 AM EDT I have scheduled Pt for a Coronary CTA scan on 04/19/25, 7:00am arr., 7:30am scan, @[facility]. Order and ov note faxed. Letter mailed. Pt has been called, I have left a message with the appt info and also for her to expect a call fromthe nurse or [place] regarding pre-meds for her contrast allergy. * Opal Jenkins - 04/05/2025 9:35 AM EDT I have followed up with [facility] scheduling regarding the Coronary CTA. They stated they had made multilple attempts and left messages for the pt to call them back to schedule. * Opal Jenkins - 01/18/2025 12:01 PM EDT Order, demos and ov note have been faxed to [facility] scheduling to authorize and schedule pt for a Coronary CTA scan. They will contact the pt to schedule this appointment. Letter mailed documented in this encounter Plan of Treatment Not on file documented as of this encounter Visit Diagnoses Not on filedocumented in this encounter Care Teams Cuffing Machine Operator Relationship Specialty Start Date End Date Souleymane Mccallum MD [address] [place] [address] PCP - General Internal Medicine 12/04/24 documented as of this encounter
--- OUTSIDE RECORDS SUMMARY | 2025-04-09 14:19 | XMS_ITS | Encounter Summary ---
Author Organization [facility] Address [facility] [address] [place] [address] Phone Care Team Providers Care Surgical Appliance Fitter Name Role Phone Violetta Mccallum MD Primary Care Provider [phone] Gregory Phan DMD, MD Unavailable + [phone] Encounter Details Date Type Department Care Team (Late st Contact Info) Description 09/18/2022 Procedure Pass [facility] [address] [place] [address] Social History Tobacco Use Types Packs/Day Years Used Date Smoking Tobacco: Never Smokeless Tobacco: Never Alcohol Use Standard Drinks/Week Comments Never 0 (1 standard drink = 0.6 oz pur e alcohol) Comments No Sex and Gender Information Value [...] 12/10/2025 12:00 PM EDT Office Visit [facility] Medicine [address] [place] [address] Shiloh Loaiza MD 234 [facility], [address] [place], [place] [phone] [email or web address] documented as of this encounter Visit Diagnoses Not on filedocumented in this encounter Additional Health Concerns Infection Onset Date Last Indicated Resolved Time CoV-Risk 07/23/2023 07/23/2023 08/03/2023 1:23 AM EST documented as of this encounter Care Teams Surgical Appliance Fitter Relationship Specialty Start Date End Date Violetta Mcclalum MD [address] [place] [address] PCP - General Internal Medicine 09/17/21 Gregory Phan DMD, MD [address] [place] [phone] [email or web address] global supply chain vice president 09/30/22 documented as of this encounter Additional Source Comments The information contained in this document represents components of the legal health record. It is not the complete legal health record.[facility]
--- OUTSIDE RECORDS SUMMARY | 2025-04-09 14:19 | XMS_ITS | Encounter Summary ---
Author Organization [facility] Address [address] [place] [address] Phone Care Team Providers Care Burnt Lime Drawer Name Role Phone Luana Mccallum MD Primary Care Provider [phone] Violetta Mccallum MD Primary Care Provider Gregory Phan DMD, MD Unavailable [phone] Encounter Details Date Type Department Care Team (Late st Contact Info) Description 10/15/2020 Procedure Pass [facility] [address] [facility] 2nd Floor [place], [place] [phone] Social History Tobacco Use Types Packs/Day Years Used Date Smoking Tobacco: Never Assessed Comments Unknown Sex and Gender Information Value [...] Description 12/10/2025 12:00 PM EDT Office Visit [facility] Medicine [address] [place] [address] Shiloh Loaiza MD 234 [facility], [address] [place] [address] documented as of this encounter Visit Diagnoses Not on filedocumented in this encounter Additional Health Concerns Infection Onset Date Last Indicated Resolved Time CoV-Risk 07/23/2023 07/23/2023 08/03/2023 1:23 AM EST documented as of this encounter Care Teams Burnt Lime Drawer Relationship Specialty Start Date End Date Luana Mccallum MD [address] [facility] [place] [address] PCP - General Family Medicine 03/14/20 09/16/21 Violetta Mccallum MD [address] [address] PCP - General Internal Medicine 09/17/21 Gregory Phan DMD, MD [address] [place] [phone] [email or web address] agent 09/30/22 documented as of this encounter Additional Source Comments The information contained in this document represents components of the legal health record. It is not the complete legal health record.[facility]
--- OUTSIDE RECORDS SUMMARY | 2025-04-09 14:19 | XMS_ITS | Patient Health Record ---
Author Organization [facility] Address [address] [place] [address] Care Team Providers Care Data Examination Clerk Name Role Phone AURA MARTINEZ Unavailable [phone] DANETTE MCCALLUM Unavailable [phone] ADRIANO MCCALLUM Unavailable [phone] MarcoNydia soliz Unavailable [phone] MYNORSUZETTE MUNSON Unavailable [phone] Allergies No Known Allergies Results Component Value Reference Range Notes TILT TABLE Reviewed date:12/28/2024 04:19:17 PM Interpretation: Performing Lab: Notes/Report: Note See Note [facility], a member of [employer] Patient Name: STEFF BENTON Date of : 1990 Reason for Exam: Exam Date: 12/26/2024 [id number] EST Report Status: Final Ordering Provider: ARTURO MARIE PCP: DANETTE MCCALLUM This is a summary report. The complete report is available in the patient's medical record. If you cannot access the medical record, please contact the sending organization for a detailed fax or copy. VITAMIN D,25-OH,TOTAL,IA Reviewed date:09/11/2024 01:32:33 PM Interpretation: Performing Lab:NL2, [facility] [place], [place] [address] Raul Bustillo Notes/Report: FASTING:YES FASTING: YES VITAMIN D,25-OH,TOTAL,IA 31 30-100 ng/mL Vitamin D Status 25-OH Vitamin D: Deficiency: <20 ng/mL Insufficiency: 20 - 29 ng/mL Optimal: > or = 30 ng/mL For 25-OH Vitamin D testing on patients on D2-supplementation and patients for whom quantitation of D2 and D3 fractions is required, the QuestAssureD(TM) 25-OH VIT D, (D2,D3), LC/MS/MS is recommended: order code 64523 (patients >2yrs). See Note 1 Note 1 For additional information, please refer to http://education.[employer]pirics/faq/ KEH269 (This link is being provided for informational/ educational purposes only.) T3, FREE Reviewed date:09/11/2024 01:32:33 PM Interpretation: Performing Lab:NL2, [facility] [place] [phone] Raul Bustillo Notes/Report: FASTING:YES FASTING: YES T3, FREE 2.8 2.3-4.2 pg/mL TSH Reviewed date:09/11/2024 01:32:33 PM Interpretation: Performing Lab:NL2, [facility] Raul Bustillo Notes/Report: FASTING:YES FASTING: YES TSH 1.46 Reference Range > or = 20 Years 0.40-4.50 Ranges First trimester 0.26-2.66 Second trimester 0.55-2.73 Third trimester 0.43-2.91 T3, TOTAL Reviewed date:09/11/2024 01:32:33 PM Interpretation: Performing Lab:GA2, [facility] Raul Bustillo Notes/Report: FASTING:YES FASTING: YES T3, TOTAL 86 76-181 ng/dL T4, FREE Reviewed date:09/11/2024 01:32:33 PM Interpretation: Performing Lab:NL2, [facility] Raul Bustillo Notes/Report: FASTING:YES FASTING: YES T4, FREE 1.2 0.8-1.8 ng/dL HEMOGLOBIN A1c Reviewed date:11/03/2024 07:59:25 AM Interpretation: Performing Lab:NL2, [facility] Raul Bustillo Notes/Report: FASTING: YES FASTING:YES HEMOGLOBIN A1c 5.2 [...] diagnosis of diabetes in children. According to [place] Diabetes Association (ADA) guidelines, hemoglobin A1c <7.0% represents optimal control in non- diabetic patients. Different metrics may apply to specific patient populations. Standards of Medical Care in Diabetes(ADA). HEMOGLOBIN A1c Reviewed date:09/11/2024 01:32:33 PM Interpretation: Performing Lab:NL2, [facility] Raul Bustillo Notes/Report: FASTING:YES FASTING: YES [...] diagnosis of diabetes in children. According to [place] Diabetes Association (ADA) guidelines, hemoglobin A1c <7.0% represents optimal control in non- diabetic patients. Different metrics may apply to specific patient populations. Standards of Medical Care in Diabetes(ADA). URINALYSIS, COMPLETE Reviewed date:09/11/2024 01:32:33 PM Interpretation: Performing Lab:NL2, [facility] Raul Bustillo Notes/Report: FASTING:YES FASTING: YES [...] elements. Only those elements seen were reported. CBC (INCLUDES DIFF/PLT) Reviewed date:11/03/2024 09:45:44 AM Interpretation: Performing Lab:NL2, [facility] Raul Bustillo Notes/Report: FASTING:YES FASTING: YES WHITE BLOOD CELL COUNT 3.9 3.8-10.8 Thousand/uL RED BLOOD CELL COUNT 4.01 3.80-5.10 Million/uL [...] MPV 10.7 7.5-12.5 fL ABSOLUTE NEUTROPHILS 2430 9525-3673 cells/uL ABSOLUTE LYMPHOCYTES 2891 304-0491 cells/uL ABSOLUTE MONOCYTES 273 200-950 cells/uL ABSOLUTE EOSINOPHILS 39 15-500 cells/uL ABSOLUTE BASOPHILS 12 0-200 cells/uL NEUTROPHILS 62.3 LYMPHOCYTES 29.4 MONOCYTES 7.0 EOSINOPHILS 1.0 BASOPHILS 0.3 CBC (INCLUDES DIFF/PLT) Reviewed date:09/11/2024 01:32:33 PM Interpretation: Performing Lab:2, [facility] Raul Bustillo Notes/Report: FASTING:YES FASTING: YES WHITE BLOOD CELL COUNT 4.1 3.8-10.8 Thousand/uL RED BLOOD CELL COUNT 3.76 3.80-5.10 Million/uL [...] MPV 10.8 7.5-12.5 fL ABSOLUTE NEUTROPHILS 2583 6584-9222 cells/uL ABSOLUTE LYMPHOCYTES 3625 706-6474 cells/uL ABSOLUTE MONOCYTES 340 200-950 cells/uL ABSOLUTE EOSINOPHILS 62 15-500 cells/uL ABSOLUTE BASOPHILS 21 0-200 cells/uL NEUTROPHILS 63 LYMPHOCYTES 26.7 MONOCYTES 8.3 EOSINOPHILS 1.5 BASOPHILS 0.5 PHOSPHATE ( PHOSPHORUS) Reviewed date:11/03/2024 07:59:25 AM Interpretation: Performing Lab:NL2, [facility] Raul Bustillo Notes/Report: FASTING:YES FASTING: YES PHOSPHATE ( PHOSPHORUS) 3.5 2.5-4.5 mg/dL COMPREHENSIVE METABOLIC PANE L Reviewed date:11/03/2024 07:59:25 AM Interpretation: Performing Lab:NL2, [facility] Raul Bustillo Notes/Report: FASTING:YES FASTING: YES [...] 12 10-30 U/L ALT 8 6-29 U/L COMPREHENSIVE METABOLIC PANE L Reviewed date:09/11/2024 01:32:33 PM Interpretation: Performing Lab:NL2, [facility] Raul Bustillo Notes/Report: FASTING:YES FASTING: YES [...] 13 10-30 U/L ALT 12 6-29 U/L LIPID PANEL, STANDARD Reviewed date:09/11/2024 01:32:33 PM Interpretation: Performing Lab:GA2, [facility] Raul Bustillo Notes/Report: FASTING:YES FASTING: YES CHOLESTEROL, TOTAL 154 [...] LDL-C. Martin KOWALSKI et al. ADDISON. 2013;310(19): 5043-5118 (http://education.Atreo [employer].Vizolution/faq /HUT352) CHOL/HDLC RATIO 2.8 <5.0 (calc) NON HDL CHOLESTEROL 98 <130 mg/dL (calc) For patients with diabetes plus 1 major ASCVD risk factor, treating to a non-HDL-C goal of <100 mg/dL (LDL-C of <70 mg/dL) is considered a therapeutic option. Reason For Referral Reason iron infusions Diagnosis 1 Low ferritin (R79.0) Referral Organization [facility] Referring Provider First Name AURA Referring Provider Last Name JUAN Referring Provider Speciality Internal edicine Referred Provider Specialty Hematology Clinical Notes Camila Mckeon 01:54:37 PM >faxed referral with labs to [facility], p) [phone], f) [phone], Song Mckeon 09/07/2024 03:27:55 PM > Scheduled for 09/27/24. Pt aware Referral Priority Routine Diagnosis 1 Anxiety (F41.9) Referral Organization [facility] Referring Provider First Name AURA Referring Provider Last Name JUAN Referring Provider Speciality Internal edicine Referred Provider Specialty [facility]iatry [facility] , f: [phone] Referral Priority Routine Reason evaluate & treat Diagnosis 1 Hormone imbalance (E 34.9) Diagnosis 2 Pheochromocytoma, un specified laterality (D35.00) Referral Organization [facility] Referring Provider First Name AURA Referring Provider Last Name JUAN Referring Provider Speciality Internal edicine Referred Provider Specialty Endocrinolog y General Notes Yaa Carpenter 11/29 10:38:13 AM > faxed over to Yobany Ulloa MD at [facility] endocrinology , p. , f. [phone] Clinical Notes Gabe Batista 01/2025 09:11:33 AM > refaxed. pt called in stating they did not receive anything., Lisa Patino 12/21/2024 11:36:19 AM > refaxed to [facility] endocrinology Referral Priority Routine Diagnosis 1 Dizziness (R42) Diagnosis 2 Headache, unspecifie d (R51.9) [facility] Referring Provider First Name AURA Referring Provider Last Name JUAN Referring Provider Speciality Internal M edicine Referred Provider Specialty Neurology General Notes Dutch Monae 03:23:32 PM > faxed to [facility] p [phone] Referral Priority Routine Medications Medication SIG (Take, Route, Frequency, Duration) Notes Start Date End Date Status Iron 325 (65 Fe) MG 1 tablet Orally twic e a day; Duration: 30 days 09/15/2023 Active Multi Complete - as directed Orally Active Probiotic 250 MG as directed Orally Active Vitamin D Active Vitamin C Active B Complex Active Sertraline HCl 12.5mg tablet A ctive Social History Tobacco Use: Social History Observation Description Date Details (start date - stop date) Never Smoker NA - NA Tobacco Use/Smoking Question Answer Notes Are you a nonsmoker Problems Problem Type SNOMED Code ICD Code Onset Dates Problem Status W/U Status Risk Notes Problem 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) Active confirmed Problem Chronic pain (84056441) Other chronic pain (G89.29) Active confirmed Problem Anxiety (62103029) Anxiety (F41.9) Active confirmed Problem Adult health examination (489687232) Adult general medical exam (Z00.00) Active confirmed Problem Vitamin D deficiency (23403551) Vitamin D deficiency (E55.9) Active confirmed Problem Diabetes mellitus screening (235722477) Diabetes mellitus screening (Z13.1) Active confirmed Problem Acute stress disorder (09217539) Stress reaction (F43.0) Active confirmed Problem Streptococcal sore throat (disorder) (78866281) Strep pharyngitis (J02.0) Active confirmed Problem Excessive and frequent menstruation (079929713) Menorrhagia with regular cycle (N92.0) Active confirmed Problem Chronic anemia (788984802) Chronic anemia (D64.9) Active confirmed Problem Neck pain (02440367) Neck pain on right side (M54.2) Active confirmed Problem Right upper quadrant pain (369610476) RUQ pain (R10.11) Active confirmed Problem Generalized anxiety disorder (66591991) Anxiety, generalized (F41.1) Active confirmed Vital Signs Heart Rate 85 /min 01/31/2025 Oximetry 99 % 01/31/2025 Blood pressure diastolic 80 mm Hg 01/31/2025 Height 64 in 01/31/2025 Blood pressure systolic 112 mm Hg 01/31/2025 Weight 150.6 lbs 01/31/2025 BMI 25.85 kg/m2 01/31/2025 Encounters Encounter Location Date Provider Diagnosis [facility] [address] [place] [address] 04/11/2024 SUZETTE LOWE Strep pharyngitis J02.[address] [facility] [address] [place] [address] 04/21/2024 AURA MARTINEZ Non-recurrent acute suppurative otitis media of right ear without spontaneous rupture of tympanic membrane H66.001 and Strep pharyngitis J02.[address] [facility] [address] [place] [address] 07/14/2024 AURA MARTINEZ Ear pain, right H92. 01 and Neck pain on right side M54.[address] [facility] [address] [place] [address] 09/15/2024 AURA MARTINEZ Adult general medica l exam Z00.00 ; RUQ pain R10.11 ; Anxiety, generalized F41.1 and Chronic anemia D64.[address] [facility] [address] [place] [address] 11/01/2024 AURA MARTINEZ Other disorders of phosphorus metabolism E83.39 ; Anxiety disorder with panic attacks F41.9 ; Chronic anemia D64.9 and Encounter for examination of blood pressure without abnormal findings Z01.[address] [facility] [address] [place] [address] 11/13/2024 AURA MEDEROSA Chronic anemia D64.9 ; Anxiety disorder with panic attacks F41.9 and Encounter for examination of blood pressure without abnormal findings Z01.[address] [facility] [address] [place] [address] 11/21/2024 AURA JUAN Chronic anemia D64.9 ; Anxiety disorder with panic attacks F41.9 and Encounter for examination of blood pressure without abnormal findings Z01.[address] [facility] [address] [place] [address] 01/31/2025 NIDMONA MCCALLUM Hormone imbalance E34.9 ; Palpitation R00.2 ; Orthostatic hypotension I95.1 and Menorrhagia with regular cycle N92.0 [facility] [address] [place] [address] [place] [address] 04/10/2024 TALAL MCCALLUM [facility] [address] [place] [address] [place] [address] 04/21/2024 TALAL MCCALLUM [facility] [address] [place] [address] [place] [address] 07/12/2024 AURA JUAN [facility] [address] [place] [address] [place] [address] 07/12/2024 TALAL MCCALLUM [facility] [address] [place] [address] [place] [address] 09/07/2024 AURA JUAN [facility] [address] [place] [address] [place] [address] 09/07/2024 TALAL MCCALLUM [facility] [address] [place] [address] 10/03/2024 AURA JUAN [facility] [address] [place] [address] 10/05/2024 AURA JUAN [facility] [address] [place] [address] [place] [address] 10/29/2024 Nydia Svrcek [facility] [address] [place] [address] 10/31/2024 TALAL MCCALLUM [facility] [address] [place] [address] 11/01/2024 AURA JUAN [facility] [address] [place] [address] 11/07/2024 AURA JUAN [facility] [address] [place] [address] 11/08/2024 AURA JUAN [facility] [address] [place] [address] 11/10/2024 AURA JUAN [facility] [address] [place] [address] 11/14/2024 AURA JUAN [facility] [address] [place] [address] 12/12/2024 JOEYAH MCCALLUM [facility] [address] [place] [address] 12/21/2024 AURA JUAN [facility] [address] [place] [address] 08/28/2024 TALAL MCCALLUM [facility] [address] [place], [place] 08/28/2024 TALAL MCCALLUM [facility] [address] [place] [address] 08/28/2024 AURA MARTINEZ Annual physical exam Z00.00 ; Screening for diabetes mellitus Z13.1 ; Screening for thyroid disorder Z13.29 ; Screening for lipid disorders Z13.220 and Vitamin D deficiency E55.[address] [facility] [address] [place] [address] 10/05/2024 TALAL MCCALLUM [facility] [address] [place] [address] 10/22/2024 AURA MARTINEZ RUQ abdominal pain R10.11 [facility] [address] [address] 11/06/2024 AURA MARTINEZ Anxiety disorder wit h panic attacks F41.9 [facility] [address] [place] [address] [place] [address] 11/15/2024 AURA JUAN [facility] [address] [facility] [address] [place] [address] 11/16/2024 AURA MEDEROSA [facility] [address] [place] [address] 11/24/2024 AURA MARTUPA [facility] [address] [place] [address] 11/27/2024 AURA JUAN [facility] [address] [place] [address] 11/28/2024 AURA MARTINEZ [facility] [address] [place] [address] 12/01/2024 AURA MARTINEZ [facility] [address] [place] [address] 12/26/2024 AURA MARTINEZ [facility] [address] [place] [address] 01/11/2025 AURA MARTINEZ Assessments Encounter Date Diagnosis (ICD Code) Assessment [...] Dictation was accomplished with the use of [employer] voice recognition software, prone to medical misidentifications [...] Dictation was accomplished with the use of [employer] voice recognition software, prone to medical misidentifications [...] Dictation was accomplished with the use of [employer] voice recognition software, prone to medical misidentifications [...] reviewed. Dictation completed with the use of [employer] voice recognition software, prone to medical misidentifications [...] IV iron infusions. #Anemia: Patient followed by [facility] and monitor with CBCs due to heavy periods. Has trialed oral iron supplements as well as iron enriched food and still has anemia present in blood work. Recently referred to [facility] hematology for further evaluation and possible iron infusions. Patient scheduled to be seen for consultation later this month. Reports dizziness, lightheadedness and palpitations as a result of the anemia. Recommend to continue with [facility] hematology recommendations. Discussed whether or not patient was a candidate per [facility] for oral contraceptives, but given patient's strong [...] log exercise and discussed fitness Apps like [employer] which can help keep log off calories [...] Dictation was accomplished with the use of [employer] voice recognition software, prone to medical misidentifications [...] IV iron infusions. #Anemia: Patient followed by [facility] and monitor with CBCs due to heavy periods. Has trialed oral iron supplements as well as iron enriched food and still has anemia present in blood work. Recently referred to [facility] hematology for further evaluation and possible iron infusions. Patient scheduled to be seen for consultation later this month. Reports dizziness, lightheadedness and palpitations as a result of the anemia. Recommend to continue with [facility] hematology recommendations. Discussed whether or not patient was a candidate per [facility] [facility] for oral contraceptives, but given patient's strong [...] log exercise and discussed fitness Apps like [employer] which can help keep log off calories [...] Dictation was accomplished with the use of [employer] voice recognition software, prone to medical misidentifications [...] reported increased jittery, shaking and shivering sensation. Jeddo increased chest pressure rated 8/10. Was given [...] as well as a biopsy scheduled with [facility] in November to further evaluate for heavy menstruation. Patient has experienced ongoing panic attacks and increased anxiety daily had called. On-call service and spoke with Nydia Marmoljeo PA-C who recommended to continue sertraline 25 [...] Dictation was accomplished with the use of [employer] voice recognition software, prone to medical misidentifications [...] reported increased jittery, shaking and shivering sensation. Jeddo increased chest pressure rated 8/10. Was given [...] as well as a biopsy scheduled with [facility] in November to further evaluate for heavy [...] Dictation was accomplished with the use of [employer] voice recognition software, prone to medical misidentifications and grammatical errors. This is unintentional and the practitioner does try to identify and correct these, but some could still be present. Please do not hesitate to contact practitioner for clarification. 11/06/2024 Anxiety disorder with panic attacks (ICD-10 - F41.9) 11/21/2024 Chronic anemia (ICD-10 - D64.9) Steff [...] Patient is to be seen tomorrow by [facility]iology tomorrow for evaluation of patient reported [...] Dictation was accomplished with the use of [employer] voice recognition software, prone to medical misidentifications and grammatical errors. This is unintentional and the practitioner does try to identify and correct these, but some could still be present. Please do not hesitate to contact practitioner for clarification. 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 Has 2 young children.#Hormone imbalance: Estradiol is within the expected range for premenopausal woman but symptoms suggest both estrogen dominance and deficiency this is usually caused by estradiol fluctuating from low to high which is common in women with excessive stressors or by low ratio of progesterone. We will be replacing progesterone with bioidentical hormones 100 mg at bedtime. Recommended to take 2 weeks on 2 weeks off due to her regular menstrual cycle. #Anemia secondary to menorrhagia: Had a reaction to iron infusion and is currently taking oral iron supplements. #Heavy periods with clots since her miscarriage in May 2021 leading to dizzy spells and hypotension.She has been recommended hysterectomy, due to the severe orthostatic hypotension the bead worker sewing does not recommend her going under general anesthesia. #Severe orthostatic hypotension diagnosed in December 2024, the bead worker sewing tried medication treatment but the patient was not able to tolerate. She is being referred through the bead worker sewing to a specialist in [place]. #Off-and-on palpitations, random, chronic, Almost daily, echocardiogram/Holter monitor done/will make appointment with cardiology. #Strong family history of breast cancer, mom from breast cancer at 44 years of age, her sister also from breast cancer. She reports being tested negative for BRCA genes. Patient understands that we prescribe bioidentical hormones for patient that pharmacy compounding laws regulate.. We are providing an integrative approach to treatment of hormones. Patient needs to make an informed decision about risk benefits which were explained in detail on today's visit. Many individuals have inadequate hormone levels despite technically normal blood test. Some individuals suffering symptoms related to menopause or andropause or inability to lose weight may benefit from hormone replacement treatments. BHRT may optimize hormone levels in the blood, although there is no guarantee that this will yield positive results. There could be potential harmful side effects. This approach to hormone optimization is not universally lisa[tedby the medical community, and may be contrary to the approach of an warehouse worker for hormone health. The following bioidentical hormone therapeutic therapies are nonallopathic and subjective medical debate 1. Estradiol replacement therapy and, although not always help maintain vagina and urethral function and might slow progression of osteoporosis. It might also improve sleep, decrease hot flashes and night sweats, decrease visceral fat, improved cognitive function, improved libido and overall sense of wellbeing. 2. Progesterone replacement therapy can be used to treat conditions related to relatively low progesterone, which may include PMS, PMDD, PCOS, irregular or heavy menstruation, vasomotor symptoms, poor sleep quality and anxiety. It may, although not always, offer protection against breast and uterine cancer. 3. Testosterone replacement therapy can be used to treat symptoms or lab tests suggesting suboptimal hormone levels as they are obtained by patient's provider. Low testosterone is linked to elevated cholesterol, high blood pressure, diabetes and prostate problems. In some cases there may be use in women. 4. Thyroid replacement can be used to improve thyroid hypofunctioning, in which suboptimal levels of bioactive thyroid hormone because symptoms of low thyroid like fatigue cold intolerance, hair thinning, weight gain, constipation and dry skin. 5. DHEA replacement continues to improve lower suboptimal levels of DHEA-S, which often decreases with age and other inflammatory conditions. DHEA may counterbalance the negative effects of high cortisol levels, reduce musculoskeletal pain and, improved sense of wellbeing. Risks of BHRT: 1. Bioidentical estradiol is available in different forms including oral capsules, torches, patches, pellets and, topical creams. Adverse reactions may include bloating, breakthrough bleeding, breast swelling and tenderness, fluid retention weight gain liver cyst, mood swings Alzheimer's dementia and from strokes heart attacks blood clots or cancer. Though not the first-line treatment of choice of the practice, high potency conjugated synthetic estrogens e.g. Premarin have been linked to increased risk of breast cancer and blood clots especially in smokers. Nonetheless, the whole area of estrogen replacement is undergoing further evaluation. Do not take estrogen if patient has breast cancer 2. Progesterone therapy : Bioidentical progesterone is available in various forms including oral capsules, torches, vagina low rectal suppositories and topical creams and gels. Progesterone therapy may be sedating so it is recommended to coordinate dose with sleep cycle. Adverse reactions include bloating breakthrough bleeding missed menstrual cycle breast swelling tenderness fluid retention weight gain sedation and depression. 3. Bioidentical testosterone therapy is available in various forms including sublingual drops, approaches, topical creams, pellets and injections. Side effects include acne.,change in libido erythrocytosis angina risk for blood clots lipid changes. 4. Bioidentical thyroid hormones because heart palpitations arrhythmias tremors and sleep disturbance. 5. DHEA therapy may cause acne and hirsutism. DHEA is not recommended in patients with active breast or prostate cancer. Alternatives to BHRT services hormone therapy: BHRT services hormone therapy supply hormone balancing and treatments of different conditions, some of which may not qualify as an illness requiring treatment under traditional allopathic medical thinking. In other words, traditional medical thinking does not identify feeling better or having more energy or vitality as medically necessary for patients to justify BHRT services. An warehouse worker is a healthcare professional licensed specifically to address issues involving hormone health. Their approach is more traditional in the training and protocol. Seeking nonintegrated health care from professionals other than patient's provider is an alternative patient should pursue if patient feels uncomfortable about the side effects of hormone therapies or if the patient wishes to adopt a more conservative approach to hormone health. Patient understands that treatment may be considered off label and not FDA approved for patients specific age history or symptoms meaning that treatment may not meet standard treatment guideline recommendations. Testosterone treat therapy is not FDA approved for use in the moment. Patient reviewed the most up-to-date clinical guidelines regarding the use, dose, route, frequency and duration of BHRT, including but not limited to progesterone and estrogen testosterone and DHEA. Current known potential risk of hormone replacement therapies can include but are not limited to heart attack, stroke blood clots cancer deepening of voice clitoral enlargement increased clitoral sensitivity hypersexuality, acne , deformities and woman, breast-feeding woman or woman who may become , abnormal hair growth worsening of sleep apnea fertility and early mortality. Oral estrogen use may be associated with elevation of lipids transient rise of liver enzymes pancreatitis cholelithiasis and subsequent cholecystectomy. Current evidence-based research indicates that hormone therapy can be safe and effective for symptom management however individuals with certain health history is more likely to be at risk for above complications. Patients at high risk are not limited to those older than 60 years of age have established cardiovascular disease or diabetes, use tobacco products and have a history of migraines with aura history of sleep apnea history of poorly controlled hypertension and are out of 10 years of menopause window, have history of heart disease blood clots or stroke are overweight obese, have history of breast cancer or family history of breast cancer Patient acknowledges and agrees that further risk of estrogen use include but are not limited to cardiovascular disease blood clots and breast cancer. Patient was advised by practice to obtain an annual mammogram and regular Pap smears if patient engages in estrogen use. Total time was 60 minutes greater than 50% on care coordination and counselling 11/13/2024 Chronic anemia (ICD-10 - D64.9) Steff is a pleasant 34-year-old female present today for follow-up. # Patient seen in the ER on 10/26/2024 for possible iron transfusion reaction. Patient reported increased jittery, shaking and shivering sensation. Jeddo increased chest pressure rated 8/10. Was given [...] as well as a biopsy scheduled with [facility] in November to further evaluate for heavy [...] Patient is to be seen tomorrow by [facility] tomorrow for evaluation of patient reported [...] Dictation was accomplished with the use of [employer] voice recognition software, prone to medical misidentifications [...] reported increased jittery, shaking and shivering sensation. Jeddo increased chest pressure rated 8/10. Was given [...] as well as a biopsy scheduled with [facility] in November to further evaluate for heavy [...] Patient is to be seen tomorrow by [facility] tomorrow for evaluation of patient reported [...] Dictation was accomplished with the use of [employer] voice recognition software, prone to medical misidentifications [...] reported increased jittery, shaking and shivering sensation. Jeddo increased chest pressure rated 8/10. Was given [...] as well as a biopsy scheduled with [facility] in November to further evaluate for heavy [...] Patient is to be seen tomorrow by [facility] tomorrow for evaluation of patient reported [...] Dictation was accomplished with the use of [employer] voice recognition software, prone to medical misidentifications and grammatical errors. This is unintentional and the practitioner does try to identify and correct these, but some could still be present. Please do not hesitate to contact practitioner for clarification. 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 Has 2 young children.#Hormone imbalance: Estradiol is within the expected range for premenopausal woman but symptoms suggest both estrogen dominance and deficiency this is usually caused by estradiol fluctuating from low to high which is common in women with excessive stressors or by low ratio of progesterone. We will be replacing progesterone with bioidentical hormones 100 mg at bedtime. Recommended to take 2 weeks on 2 weeks off due to her regular menstrual cycle. #Anemia secondary to menorrhagia: Had a reaction to iron infusion and is currently taking oral iron supplements. #Heavy periods with clots since her miscarriage in May 2021 leading to dizzy spells and hypotension.She has been recommended hysterectomy, due to the severe orthostatic hypotension the bead worker sewing does not recommend her going under general anesthesia. #Severe orthostatic hypotension diagnosed in December 2024, the bead worker sewing tried medication treatment but the patient was not able to tolerate. She is being referred through the bead worker sewing to a specialist in [place]. #Off-and-on palpitations, random, chronic, Almost daily, echocardiogram/Holter monitor done/will make appointment with cardiology. #Strong family history of breast cancer, mom from breast cancer at 44 years of age, her sister also from breast cancer. She reports being tested negative for BRCA genes. Patient understands that we prescribe bioidentical hormones for patient that pharmacy compounding laws regulate.. We are providing an integrative approach to treatment of hormones. Patient needs to make an informed decision about risk benefits which were explained in detail on today's visit. Many individuals have inadequate hormone levels despite technically normal blood test. Some individuals suffering symptoms related to menopause or andropause or inability to lose weight may benefit from hormone replacement treatments. BHRT may optimize hormone levels in the blood, although there is no guarantee that this will yield positive results. There could be potential harmful side effects. This approach to hormone optimization is not universally lisa[tedby the medical community, and may be contrary to the approach of an warehouse worker for hormone health. The following bioidentical hormone therapeutic therapies are nonallopathic and subjective medical debate 1. Estradiol replacement therapy and, although not always help maintain vagina and urethral function and might slow progression of osteoporosis. It might also improve sleep, decrease hot flashes and night sweats, decrease visceral fat, improved cognitive function, improved libido and overall sense of wellbeing. 2. Progesterone replacement therapy can be used to treat conditions related to relatively low progesterone, which may include PMS, PMDD, PCOS, irregular or heavy menstruation, vasomotor symptoms, poor sleep quality and anxiety. It may, although not always, offer protection against breast and uterine cancer. 3. Testosterone replacement therapy can be used to treat symptoms or lab tests suggesting suboptimal hormone levels as they are obtained by patient's provider. Low testosterone is linked to elevated cholesterol, high blood pressure, diabetes and prostate problems. In some cases there may be use in women. 4. Thyroid replacement can be used to improve thyroid hypofunctioning, in which suboptimal levels of bioactive thyroid hormone because symptoms of low thyroid like fatigue cold intolerance, hair thinning, weight gain, constipation and dry skin. 5. DHEA replacement continues to improve lower suboptimal levels of DHEA-S, which often decreases with age and other inflammatory conditions. DHEA may counterbalance the negative effects of high cortisol levels, reduce musculoskeletal pain and, improved sense of wellbeing. Risks of BHRT: 1. Bioidentical estradiol is available in different forms including oral capsules, torches, patches, pellets and, topical creams. Adverse reactions may include bloating, breakthrough bleeding, breast swelling and tenderness, fluid retention weight gain liver cyst, mood swings Alzheimer's dementia and from strokes heart attacks blood clots or cancer. Though not the first-line treatment of choice of the practice, high potency conjugated synthetic estrogens e.g. Premarin have been linked to increased risk of breast cancer and blood clots especially in smokers. Nonetheless, the whole area of estrogen replacement is undergoing further evaluation. Do not take estrogen if patient has breast cancer 2. Progesterone therapy : Bioidentical progesterone is available in various forms including oral capsules, torches, vagina low rectal suppositories and topical creams and gels. Progesterone therapy may be sedating so it is recommended to coordinate dose with sleep cycle. Adverse reactions include bloating breakthrough bleeding missed menstrual cycle breast swelling tenderness fluid retention weight gain sedation and depression. 3. Bioidentical testosterone therapy is available in various forms including sublingual drops, approaches, topical creams, pellets and injections. Side effects include acne.,change in libido erythrocytosis angina risk for blood clots lipid changes. 4. Bioidentical thyroid hormones because heart palpitations arrhythmias tremors and sleep disturbance. 5. DHEA therapy may cause acne and hirsutism. DHEA is not recommended in patients with active breast or prostate cancer. Alternatives to BHRT services hormone therapy: BHRT services hormone therapy supply hormone balancing and treatments of different conditions, some of which may not qualify as an illness requiring treatment under traditional allopathic medical thinking. In other words, traditional medical thinking does not identify feeling better or having more energy or vitality as medically necessary for patients to justify BHRT services. An warehouse worker is a healthcare professional licensed specifically to address issues involving hormone health. Their approach is more traditional in the training and protocol. Seeking nonintegrated health care from professionals other than patient's provider is an alternative patient should pursue if patient feels uncomfortable about the side effects of hormone therapies or if the patient wishes to adopt a more conservative approach to hormone health. Patient understands that treatment may be considered off label and not FDA approved for patients specific age history or symptoms meaning that treatment may not meet standard treatment guideline recommendations. Testosterone treat therapy is not FDA approved for use in the moment. Patient reviewed the most up-to-date clinical guidelines regarding the use, dose, route, frequency and duration of BHRT, including but not limited to progesterone and estrogen testosterone and DHEA. Current known potential risk of hormone replacement therapies can include but are not limited to heart attack, stroke blood clots cancer deepening of voice clitoral enlargement increased clitoral sensitivity hypersexuality, acne , deformities and woman, breast-feeding woman or woman who may become , abnormal hair growth worsening of sleep apnea fertility and early mortality. Oral estrogen use may be associated with elevation of lipids transient rise of liver enzymes pancreatitis cholelithiasis and subsequent cholecystectomy. Current evidence-based research indicates that hormone therapy can be safe and effective for symptom management however individuals with certain health history is more likely to be at risk for above complications. Patients at high risk are not limited to those older than 60 years of age have established cardiovascular disease or diabetes, use tobacco products and have a history of migraines with aura history of sleep apnea history of poorly controlled hypertension and are out of 10 years of menopause window, have history of heart disease blood clots or stroke are overweight obese, have history of breast cancer or family history of breast cancer Patient acknowledges and agrees that further risk of estrogen use include but are not limited to cardiovascular disease blood clots and breast cancer. Patient was advised by practice to obtain an annual mammogram and regular Pap smears if patient engages in estrogen use. Total time was 60 minutes greater than 50% on care coordination and counselling 11/21/2024 Anxiety disorder with panic attacks (ICD-10 [...] Patient is to be seen tomorrow by [facility] tomorrow for evaluation of patient reported [...] Dictation was accomplished with the use of [employer] voice recognition software, prone to medical misidentifications [...] Patient is to be seen tomorrow by [facility] tomorrow for evaluation of patient reported [...] Dictation was accomplished with the use of [employer] voice recognition software, prone to medical misidentifications [...] reported increased jittery, shaking and shivering sensation. Jeddo increased chest pressure rated 8/10. Was given [...] as well as a biopsy scheduled with [facility] in November to further evaluate for heavy [...] Dictation was accomplished with the use of [employer] voice recognition software, prone to medical misidentifications [...] IV iron infusions. #Anemia: Patient followed by [facility] and monitor with CBCs due to heavy periods. Has trialed oral iron supplements as well as iron enriched food and still has anemia present in blood work. Recently referred to [facility] hematology for further evaluation and possible iron infusions. Patient scheduled to be seen for consultation later this month. Reports dizziness, lightheadedness and palpitations as a result of the anemia. Recommend to continue with [facility] hematology recommendations. Discussed whether or not patient was a candidate per [facility] for oral contraceptives, but given patient's strong [...] log exercise and discussed fitness Apps like [employer] which can help keep log off calories [...] Dictation was accomplished with the use of [employer] voice recognition software, prone to medical misidentifications [...] Dictation was accomplished with the use of [employer] voice recognition software, prone to medical misidentifications [...] IV iron infusions. #Anemia: Patient followed by [facility] and monitor with CBCs due to heavy periods. Has trialed oral iron supplements as well as iron enriched food and still has anemia present in blood work. Recently referred to [facility] hematology for further evaluation and possible iron infusions. Patient scheduled to be seen for consultation later this month. Reports dizziness, lightheadedness and palpitations as a result of the anemia. Recommend to continue with [facility] hematology recommendations. Discussed whether or not patient was a candidate per [facility] for oral contraceptives, but given patient's strong [...] log exercise and discussed fitness Apps like [employer] which can help keep log off calories [...] Dictation was accomplished with the use of [employer] voice recognition software, prone to medical misidentifications [...] reported increased jittery, shaking and shivering sensation. Jeddo increased chest pressure rated 8/10. Was given [...] as well as a biopsy scheduled with [facility] in November to further evaluate for heavy [...] Dictation was accomplished with the use of [employer] voice recognition software, prone to medical misidentifications and grammatical errors. This is unintentional and the practitioner does try to identify and correct these, but some could still be present. Please do not hesitate to contact practitioner for clarification. 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 Has 2 young children.#Hormone imbalance: Estradiol is within the expected range for premenopausal woman but symptoms suggest both estrogen dominance and deficiency this is usually caused by estradiol fluctuating from low to high which is common in women with excessive stressors or by low ratio of progesterone. We will be replacing progesterone with bioidentical hormones 100 mg at bedtime. Recommended to take 2 weeks on 2 weeks off due to her regular menstrual cycle. #Anemia secondary to menorrhagia: Had a reaction to iron infusion and is currently taking oral iron supplements. #Heavy periods with clots since her miscarriage in May 2021 leading to dizzy spells and hypotension.She has been recommended hysterectomy, due to the severe orthostatic hypotension the bead worker sewing does not recommend her going under general anesthesia. #Severe orthostatic hypotension diagnosed in December 2024, the bead worker sewing tried medication treatment but the patient was not able to tolerate. She is being referred through the bead worker sewing to a specialist in [place]. #Off-and-on palpitations, random, chronic, Almost daily, echocardiogram/Holter monitor done/will make appointment with cardiology. #Strong family history of breast cancer, mom from breast cancer at 44 years of age, her sister also from breast cancer. She reports being tested negative for BRCA genes. Patient understands that we prescribe bioidentical hormones for patient that pharmacy compounding laws regulate.. We are providing an integrative approach to treatment of hormones. Patient needs to make an informed decision about risk benefits which were explained in detail on today's visit. Many individuals have inadequate hormone levels despite technically normal blood test. Some individuals suffering symptoms related to menopause or andropause or inability to lose weight may benefit from hormone replacement treatments. BHRT may optimize hormone levels in the blood, although there is no guarantee that this will yield positive results. There could be potential harmful side effects. This approach to hormone optimization is not universally lisa[tedby the medical community, and may be contrary to the approach of an warehouse worker for hormone health. The following bioidentical hormone therapeutic therapies are nonallopathic and subjective medical debate 1. Estradiol replacement therapy and, although not always help maintain vagina and urethral function and might slow progression of osteoporosis. It might also improve sleep, decrease hot flashes and night sweats, decrease visceral fat, improved cognitive function, improved libido and overall sense of wellbeing. 2. Progesterone replacement therapy can be used to treat conditions related to relatively low progesterone, which may include PMS, PMDD, PCOS, irregular or heavy menstruation, vasomotor symptoms, poor sleep quality and anxiety. It may, although not always, offer protection against breast and uterine cancer. 3. Testosterone replacement therapy can be used to treat symptoms or lab tests suggesting suboptimal hormone levels as they are obtained by patient's provider. Low testosterone is linked to elevated cholesterol, high blood pressure, diabetes and prostate problems. In some cases there may be use in women. 4. Thyroid replacement can be used to improve thyroid hypofunctioning, in which suboptimal levels of bioactive thyroid hormone because symptoms of low thyroid like fatigue cold intolerance, hair thinning, weight gain, constipation and dry skin. 5. DHEA replacement continues to improve lower suboptimal levels of DHEA-S, which often decreases with age and other inflammatory conditions. DHEA may counterbalance the negative effects of high cortisol levels, reduce musculoskeletal pain and, improved sense of wellbeing. Risks of BHRT: 1. Bioidentical estradiol is available in different forms including oral capsules, torches, patches, pellets and, topical creams. Adverse reactions may include bloating, breakthrough bleeding, breast swelling and tenderness, fluid retention weight gain liver cyst, mood swings Alzheimer's dementia and from strokes heart attacks blood clots or cancer. Though not the first-line treatment of choice of the practice, high potency conjugated synthetic estrogens e.g. Premarin have been linked to increased risk of breast cancer and blood clots especially in smokers. Nonetheless, the whole area of estrogen replacement is undergoing further evaluation. Do not take estrogen if patient has breast cancer 2. Progesterone therapy : Bioidentical progesterone is available in various forms including oral capsules, torches, vagina low rectal suppositories and topical creams and gels. Progesterone therapy may be sedating so it is recommended to coordinate dose with sleep cycle. Adverse reactions include bloating breakthrough bleeding missed menstrual cycle breast swelling tenderness fluid retention weight gain sedation and depression. 3. Bioidentical testosterone therapy is available in various forms including sublingual drops, approaches, topical creams, pellets and injections. Side effects include acne.,change in libido erythrocytosis angina risk for blood clots lipid changes. 4. Bioidentical thyroid hormones because heart palpitations arrhythmias tremors and sleep disturbance. 5. DHEA therapy may cause acne and hirsutism. DHEA is not recommended in patients with active breast or prostate cancer. Alternatives to BHRT services hormone therapy: RT services hormone therapy supply hormone balancing and treatments of different conditions, some of which may not qualify as an illness requiring treatment under traditional allopathic medical thinking. In other words, traditional medical thinking does not identify feeling better or having more energy or vitality as medically necessary for patients to justify BHRT services. An warehouse worker is a healthcare professional licensed specifically to address issues involving hormone health. Their approach is more traditional in the training and protocol. Seeking nonintegrated health care from professionals other than patient's provider is an alternative patient should pursue if patient feels uncomfortable about the side effects of hormone therapies or if the patient wishes to adopt a more conservative approach to hormone health. Patient understands that treatment may be considered off label and not FDA approved for patients specific age history or symptoms meaning that treatment may not meet standard treatment guideline recommendations. Testosterone treat therapy is not FDA approved for use in the moment. Patient reviewed the most up-to-date clinical guidelines regarding the use, dose, route, frequency and duration of BHRT, including but not limited to progesterone and estrogen testosterone and DHEA. Current known potential risk of hormone replacement therapies can include but are not limited to heart attack, stroke blood clots cancer deepening of voice clitoral enlargement increased clitoral sensitivity hypersexuality, acne , deformities and woman, breast-feeding woman or woman who may become , abnormal hair growth worsening of sleep apnea fertility and early mortality. Oral estrogen use may be associated with elevation of lipids transient rise of liver enzymes pancreatitis cholelithiasis and subsequent cholecystectomy. Current evidence-based research indicates that hormone therapy can be safe and effective for symptom management however individuals with certain health history is more likely to be at risk for above complications. Patients at high risk are not limited to those older than 60 years of age have established cardiovascular disease or diabetes, use tobacco products and have a history of migraines with aura history of sleep apnea history of poorly controlled hypertension and are out of 10 years of menopause window, have history of heart disease blood clots or stroke are overweight obese, have history of breast cancer or family history of breast cancer Patient acknowledges and agrees that further risk of estrogen use include but are not limited to cardiovascular disease blood clots and breast cancer. Patient was advised by practice to obtain an annual mammogram and regular Pap smears if patient engages in estrogen use. 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 Has 2 young children.#Hormone imbalance: Estradiol is within the expected range for premenopausal woman but symptoms suggest both estrogen dominance and deficiency this is usually caused by estradiol fluctuating from low to high which is common in women with excessive stressors or by low ratio of progesterone. We will be replacing progesterone with bioidentical hormones 100 mg at bedtime. Recommended to take 2 weeks on 2 weeks off due to her regular menstrual cycle. #Anemia secondary to menorrhagia: Had a reaction to iron infusion and is currently taking oral iron supplements. #Heavy periods with clots since her miscarriage in May 2021 leading to dizzy spells and hypotension.She has been recommended hysterectomy, due to the severe orthostatic hypotension the bead worker sewing does not recommend her going under general anesthesia. #Severe orthostatic hypotension diagnosed in December 2024, the bead worker sewing tried medication treatment but the patient was not able to tolerate. She is being referred through the bead worker sewing to a specialist in [place]. #Off-and-on palpitations, random, chronic, Almost daily, echocardiogram/Holter monitor done/will make appointment with cardiology. #Strong family history of breast cancer, mom from breast cancer at 44 years of age, her sister also from breast cancer. She reports being tested negative for BRCA genes. Patient understands that we prescribe bioidentical hormones for patient that pharmacy compounding laws regulate.. We are providing an integrative approach to treatment of hormones. Patient needs to make an informed decision about risk benefits which were explained in detail on today's visit. Many individuals have inadequate hormone levels despite technically normal blood test. Some individuals suffering symptoms related to menopause or andropause or inability to lose weight may benefit from hormone replacement treatments. BHRT may optimize hormone levels in the blood, although there is no guarantee that this will yield positive results. There could be potential harmful side effects. This approach to hormone optimization is not universally lisa[tedby the medical community, and may be contrary to the approach of an warehouse worker for hormone health. The following bioidentical hormone therapeutic therapies are nonallopathic and subjective medical debate 1. Estradiol replacement therapy and, although not always help maintain vagina and urethral function and might slow progression of osteoporosis. It might also improve sleep, decrease hot flashes and night sweats, decrease visceral fat, improved cognitive function, improved libido and overall sense of wellbeing. 2. Progesterone replacement therapy can be used to treat conditions related to relatively low progesterone, which may include PMS, PMDD, PCOS, irregular or heavy menstruation, vasomotor symptoms, poor sleep quality and anxiety. It may, although not always, offer protection against breast and uterine cancer. 3. Testosterone replacement therapy can be used to treat symptoms or lab tests suggesting suboptimal hormone levels as they are obtained by patient's provider. Low testosterone is linked to elevated cholesterol, high blood pressure, diabetes and prostate problems. In some cases there may be use in women. 4. Thyroid replacement can be used to improve thyroid hypofunctioning, in which suboptimal levels of bioactive thyroid hormone because symptoms of low thyroid like fatigue cold intolerance, hair thinning, weight gain, constipation and dry skin. 5. DHEA replacement continues to improve lower suboptimal levels of DHEA-S, which often decreases with age and other inflammatory conditions. DHEA may counterbalance the negative effects of high cortisol levels, reduce musculoskeletal pain and, improved sense of wellbeing. Risks of BHRT: 1. Bioidentical estradiol is available in different forms including oral capsules, torches, patches, pellets and, topical creams. Adverse reactions may include bloating, breakthrough bleeding, breast swelling and tenderness, fluid retention weight gain liver cyst, mood swings Alzheimer's dementia and from strokes heart attacks blood clots or cancer. Though not the first-line treatment of choice of the practice, high potency conjugated synthetic estrogens e.g. Premarin have been linked to increased risk of breast cancer and blood clots especially in smokers. Nonetheless, the whole area of estrogen replacement is undergoing further evaluation. Do not take estrogen if patient has breast cancer 2. Progesterone therapy : Bioidentical progesterone is available in various forms including oral capsules, torches, vagina low rectal suppositories and topical creams and gels. Progesterone therapy may be sedating so it is recommended to coordinate dose with sleep cycle. Adverse reactions include bloating breakthrough bleeding missed menstrual cycle breast swelling tenderness fluid retention weight gain sedation and depression. 3. Bioidentical testosterone therapy is available in various forms including sublingual drops, approaches, topical creams, pellets and injections. Side effects include acne.,change in libido erythrocytosis angina risk for blood clots lipid changes. 4. Bioidentical thyroid hormones because heart palpitations arrhythmias tremors and sleep disturbance. 5. DHEA therapy may cause acne and hirsutism. DHEA is not recommended in patients with active breast or prostate cancer. Alternatives to RT services hormone therapy: RT services hormone therapy supply hormone balancing and treatments of different conditions, some of which may not qualify as an illness requiring treatment under traditional allopathic medical thinking. In other words, traditional medical thinking does not identify feeling better or having more energy or vitality as medically necessary for patients to justify BHRT services. An warehouse worker is a healthcare professional licensed specifically to address issues involving hormone health. Their approach is more traditional in the training and protocol. Seeking nonintegrated health care from professionals other than patient's provider is an alternative patient should pursue if patient feels uncomfortable about the side effects of hormone therapies or if the patient wishes to adopt a more conservative approach to hormone health. Patient understands that treatment may be considered off label and not FDA approved for patients specific age history or symptoms meaning that treatment may not meet standard treatment guideline recommendations. Testosterone treat therapy is not FDA approved for use in the moment. Patient reviewed the most up-to-date clinical guidelines regarding the use, dose, route, frequency and duration of BHRT, including but not limited to progesterone and estrogen testosterone and DHEA. Current known potential risk of hormone replacement therapies can include but are not limited to heart attack, stroke blood clots cancer deepening of voice clitoral enlargement increased clitoral sensitivity hypersexuality, acne , deformities and woman, breast-feeding woman or woman who may become , abnormal hair growth worsening of sleep apnea fertility and early mortality. Oral estrogen use may be associated with elevation of lipids transient rise of liver enzymes pancreatitis cholelithiasis and subsequent cholecystectomy. Current evidence-based research indicates that hormone therapy can be safe and effective for symptom management however individuals with certain health history is more likely to be at risk for above complications. Patients at high risk are not limited to those older than 60 years of age have established cardiovascular disease or diabetes, use tobacco products and have a history of migraines with aura history of sleep apnea history of poorly controlled hypertension and are out of 10 years of menopause window, have history of heart disease blood clots or stroke are overweight obese, have history of breast cancer or family history of breast cancer Patient acknowledges and agrees that further risk of estrogen use include but are not limited to cardiovascular disease blood clots and breast cancer. Patient was advised by practice to obtain an annual mammogram and regular Pap smears if patient engages in estrogen use. Total time was 60 minutes greater than 50% on care coordination and counselling 08/28/2024 Screening for lipid disorders (ICD-10 - [...] HEMOGLOBIN A1c 09/13/2023 US Abdomen 09/15/2024 Hemoglobin [id number] 09/15/2024 TSH+T3+Free T4+T3 Free 11/21/2024 Next Appt Details Provider Name:JOEYMONA TIRSO, 09:15:00 AM, [address], [place], [id number], Provider Name:AURA MARTINEZ, 05/22/2025 09:30:00 AM, [address], [place], [id number], Insurance Providers Payer Name Payer Address Payer Phone Subscriber Number Group Number Insured Name Patient Relationship to Insured Coverage Start Date Coverage End Date [employer] [address] [place] [id number] Steff Benton Self - patient is the insured Medical (General) History Medical History History ICD Code Anxiety F41.9 panic attacks anemia Surgical History Surgery Date(Month/Year) wisdom teeth extraction
--- OUTSIDE RECORDS SUMMARY | 2025-04-09 14:20 | XMS_ITS | Encounter Summary ---
Author Organization [facility] Address [address] [place] [phone] Phone Care Team Providers Care Copyright Manager Name Role Phone Luana Mccallum MD Primary Care Provider [phone] Violetta Mccallum MD Primary Care Provider Gregory Phan DMD, MD Unavailable Encounter Details Date Type Department Care Team (Late st Contact Info) Description 04/03/2021 Procedure Pass [facility] [address] [place] [id number] Social History Tobacco Use Types Packs/Day Years [...] Description 12/10/2025 12:00 PM EDT Office Visit [facility] Medicine [address] [place] [address] Shiloh Loaiza MD [address] [facility], [address] [place], [place] [id number] [email or web address] documented as of this encounter Visit Diagnoses Not on filedocumented in this encounter Additional Health Concerns Infection Onset Date Last Indicated Resolved Time CoV-Risk 07/23/2023 07/23/2023 08/03/2023 1:23 AM EST documented as of this encounter Care Teams Copyright Manager Relationship Specialty Start Date End Date Luana Mccallum MD 14 [facility] [place] [address] PCP - General Family Medicine 03/14/20 09/16/21 Violetta Mccallum MD [address] [place] [id number] PCP - General Internal Medicine 09/17/21 Gregory Phan DMD, MD [address] [place] [phone] [email or web address] 09/30/22 documented as of this encounter Additional Source Comments The information contained in this document represents components of the legal health record. It is not the complete legal health record.[facility]
--- OUTSIDE RECORDS SUMMARY | 2025-04-09 14:20 | XMS_ITS | Encounter Summary ---
Author Organization [facility] Address [address] [place] [address] [place] [phone] Phone Care Team Providers Care Grinder Operator External Tool Name Role Phone Violetta Mccallum MD Primary Care Provider Gregory Phan DMD, MD Unavailable + [phone] Encounter Details Date Type Department Care Team (Late st Contact Info) Description 03/03/2022 Procedure Pass [facility] [address] [facility] 2nd [place] [address] Social History Tobacco Use Types Packs/Day Years [...] 12/10/2025 12:00 PM EDT Office Visit [facility] Medicine [address] [place] [address] Shiloh Loaiza MD [address] [facility], [address] [place] [address] [email or web address] documented as of this encounter Visit Diagnoses Not on filedocumented in this encounter Additional Health Concerns Infection Onset Date Last Indicated Resolved Time CoV-Risk 07/23/2023 07/23/2023 08/03/2023 1:23 AM EST documented as of this encounter Care Teams Grinder Operator External Tool Relationship Specialty Start Date End Date Violetta Mccallum MD [address] [facility] [address] [place] [address] PCP - General Internal Medicine 09/17/21 Gregory Phan DMD, MD [address] [place] [address] [place] [id number] [email or web address] electronic test technician 09/30/22 documented as of this encounter Additional Source Comments The information contained in this document represents components of the legal health record. It is not the complete legal health record.[facility]
--- OUTSIDE RECORDS SUMMARY | 2025-04-09 14:20 | XMS_ITS | Clinical Summary ---
Author Organization [facility] Address [address] [place], [place] [address] Phone Care Team Providers Care Special Police Officer Name Role Phone Souleymane Mccallum MD Primary Care Provider [phone] Allergies Active Allergy Reactions Criticality Noted Date Comments Barium Sulfate Itching 11/14/2024 Iron Sucrose Anaphylaxis High 11/14/2024 Medications cholecalciferol (Vitamin D3) 5,000 Units tablet Take 1 tablet (5,000 Units total) by mouth 1 (one) time each day. Active ascorbic acid (VITAMIN C) 500 mg tablet Take 1 tablet (500 mg total) by mouth 1 (one) time each day. Active MAGNESIUM CITRATE ORAL Take 1 tablet by mouth 1 (one) time each day. Active UNABLE TO FIND [employer] bloodbuilder daily Active fludrocortisone (FLORINEF) 0.1 mg tabletIndicatio ns:Dizziness Take 1 tablet (0.1 mg total) by mouth 1 (one) time each day. 90 each 3 5 02/01/20 26 Active predniSONE (DELTASONE) 10 mg tablet 3 tabs 12 hrs prior to the exam then 3 tabs 2 hrs prior to the exam 6 tablet 5 04/15/20 25 Active Active Problems Problem Noted Date Diagnosed Date Orthostatic hypotension 01/31/2025 Assessment & Plan (01/31/2025 1:10 PM EDT): Tilt table test and has verified the presence of orthostatic hypotension in this patient. She did not like the way midodrine made her feel so she stopped it. She is on a high salt diet and does not like wearing the support socks. Will start her on fludrocortisone 0.1 mg a day. See how that works. She also wants a referral to the [place] [facility]. I did explain to her that there are some other medical therapies available such as droxidopa but the expense may not be covered by her insurance. Dizziness 11/14/2024 Assessment & Plan (11/14/2024 4:55 PM EDT): Patient has quite a few symptoms but summarizing most of them she complains of palpitations and dizziness with physical activity I do not think she has POTS. And there is no evidence of orthostasis on exam today. She has exertional symptoms of palpitations and chest pressure and shortness of breath. She has mild anemia but not severe enough to be causing the symptoms we will send her for stress echo and try to recreate the exertional portion of her complaint and see if there is any evidence for cardiomyopathy or tachyarrhythmia. Also going to send her for tilt table test to see if there is any evidence of POTS/or orthostasis to explain her symptoms. These are the same symptoms that she had several years ago which there were no particular diagnostic findings found they just seem to be exacerbated at this point Encounters Date Type Department Care Team Description 01/31/2025 9:20 AM EDT Office Visit [facility] Card[facility] [address] [place] [address] Alfredito Echevarria MD Dizziness (Primary Dx); Orthostatic hypotension 01/19/2025 Telephone [facility] [place] [address] Alfredito Echevarria MD 01/18/2025 Telephone [facility] Card[facility] [address] [place] [phone] Alfredito Echevarria MD from Last 3 Months Surgical History Surgery Date Site/Laterality Comments WISDOM TOOTH EXTRACTION 2004 PROCEDURE: HISTORICAL WISDOM TEETH EXTRACTION; COMMENT: All four removed Medical History Medical History Date Comments Lightheadedness DX:Lightheadedne ss Palpitations DX:Palpitations Dizziness DX:Dizziness Family History Medical History Relation Name Comments No Known Problems Brother 1 Healthy No Known Problems Brother 2 Healthy Diabetes Father Diet controlled Hypertension Father Hx of No Known Problems Maternal Grandfather Un known health hx No Known Problems Maternal Grandmother Un known health hx Breast cancer Mother dx at age 38 . Passed at age 42 No Known Problems Paternal Grandfather Un known health hx Diabetes Paternal Grandmother Breast cancer Sister at age 36 , half sister from dad side Colon cancer Neg Hx Ovarian cancer Neg Hx Pancreatic cancer Neg Hx Prostate cancer Neg Hx Uterine cancer Neg Hx Relation Name Status Comments Brother 1 Alive Brother 2 Alive Father Alive Maternal Grandfather Maternal Grandmother Alive Mother Paternal Grandfather Paternal Grandmother Sister Social History Tobacco Use Types Packs/Day Years Used Date Smoking Tobacco: Never Smokeless Tobacco: Never Alcohol Use Standard Drinks/Week Comments No 0 (1 standard drink = 0.6 oz pur e alcohol) Comments Unknown Sex and Gender Information Value Date Recorded Sex Assigned at Not on file Legal Sex Female 8:16 AM EST Gender Identity Not on file Sexual Orientation Not on file Obstetrics History Last Filed Vital Signs Vital Sign Reading Time Taken Comments Blood Pressure 112/70 01/31/2025 10:33 AM EDT Pulse 85 01/31/2025 9:38 AM EDT Temperature - - Respiratory Rate - - Oxygen Saturation 98% 01/31/2025 9:38 AM EDT Inhaled Oxygen Concentration - - Weight 68.5 kg (151 lb) 01/31/2025 9:38 AM EDT Height 162.6 cm (5' 4 ) 01/31/2025 9:38 AM EDT Body Mass Index 25.92 01/31/2025 9:38 AM EDT Plan of Treatment Health Maintenance Due Date Last Done Comments Hepatitis B Vaccines (1 of 3 - 19+ 3-dose series) 2008 HPV Vaccines (1 - 3-dose SCD M series) 2016 Cervical Cancer Screening: P ap Smear 07/26/2021 07/26/2018, 07/08/2018 HIV Screening 05/10/2022 Hepatitis C Screening 05/10/2022 Social Influencers of Health Screening 05/10/2022 Depression Screening 06/07/2024 COVID-19 Vaccine (3 - 2024-2 6 season) 2025 01/28/2021, 01/07/2021 Influenza Vaccine (#1) 2025 04/12/2019 DTaP,Tdap,and Td Vaccines (3 - Td or Tdap) 09/09/2030 09/09/2020, 11/22/2018 RSV Immunization Adult Patients (1 - 1-dose 75+ series) 2064 HIB Vaccines Aged Out No longer eligi ble based on patient's age to complete this topic Hepatitis A Vaccines Aged Out No long er eligible based on patient's age to complete this topic IPV Vaccines Aged Out No longer eligi ble based on patient's age to complete this topic MMR Vaccines Aged Out No longer eligi ble based on patient's age to complete this topic Meningococcal ACWY Vaccine Aged Out N o longer eligible based on patient's age to complete this topic Meningococcal B Vaccine Aged Out No l onger eligible based on patient's age to complete this topic Pneumococcal Vaccine: Pediatrics (0 to 5 Years) and At-Risk Patients (6 to 49 Years) Aged Out No longer eligible b ased on patient's age to complete this topic RSV Immunization Patients Under 20 months Aged Out No longer eligible b ased on patient's age to complete this topic Varicella Vaccines Aged Out No longer eligible based on patient's age to complete this topic Procedures Procedure Name Priority Date/Time Associated Diagnosis Comments ECG 12-LEAD Routine 01/31/2025 9:46 AM EDT Dizziness PAP SMEAR Routine 07/26/2018 from Last 3 Months or Most Recently Relevant to Health Maintenance Results * ECG 12 lead (01/31/2025 9:46 AM EDT) Ventricular Rate ECG 70 BPM GEMUSE Atrial Rate 70 BPM GEMUSE P-R Interval 166 ms GEMUSE QRS Duration 84 ms GEMUSE Q-T Interval 400 ms GEMUSE QTc 432 ms GEMUSE P Wave [place] 59 degrees GEMUSE R [place] 81 degrees GEMUSE T [place] 32 degrees GEMUSE ECG Interpretation Normal sinus rhythm Normal ECG When compared with ECG of 23-NOV-2021 21:50, No significant change was found Confirmed by Art ECHEVARRIA JAMES ([id number]) on 01/31/2025 4:06:03 PM GEMUSE 01/31/2025 9:46 AM EDT 01/31/2025 4:06 PM EDT us Alfredito Echevarria MD ECG ORDERABLES Final Result GEMUSE * Pap smear (07/26/2018) 07/26/2018 Narrative HISTORICAL TESTING LAB RESULTING AGENCY - 07/29/2018 11:58 AM EST [id number] THINPREP PAP, IMAGED: NEGATIVE FOR SQUAMOUS INTRAEPITHELIAL LESION AND MALIGNANCY . ABUNDANT RED BLOOD CELLS ARE PRESENT. SOCRATES HUFF(ASCP) (CASE ELECTRONICALLY SIGNED 07 29 2018) ADEQUACY: SATISFACTORY ENDOCERVICAL/TRANSFORMATION ZONE COMPONENT PRESENT. SOURCE: THINPREP PAP HPV IF ASCUS, CERVICAL, IMAGED CLINICAL INFORMATION: HPV IF DIAGNOSIS OF ASCUS. Z12.4, R87.615, us Bing Pettit DO LAB CYTOLOGY ORDERABLES Final Result HISTORICAL TESTING LAB RESULTING AGENCY from Last 3 Months or Most Recently Relevant to Health Maintenance Insurance [facility] Care Teams Special Police Officer Relationship Specialty Start Date End Date Souleymane Mccallum MD [address] [place] [address] [id number] [id number] PCP - General Internal Medicine 12/04/24
--- OUTSIDE RECORDS SUMMARY | 2025-04-09 14:20 | XMS_ITS | Encounter Summary ---
Author Organization [facility] Address [address] [place] [address] [place] [phone] Phone Care Team Providers Care Wrecking Mechanic Name Role Phone Violetta Mccallum MD Primary Care Provider [phone] Gregory Phan DMD, MD Unavailable + [phone] Encounter Details Date Type Department Care Team (Late st Contact Info) Description 09/18/[address] [facility], [place] [address] [place] [address] Social History Tobacco Use Types Packs/Day Years [...] Description 12/10/2025 12:00 PM EDT Office Visit [facility] Medicine [address] [place] [address] Shiloh Loaiza MD [address] [facility], [address] [place] [address] documented as of this encounter Visit Diagnoses Not on filedocumented in this encounter Additional Health Concerns Infection Onset Date Last Indicated Resolved Time CoV-Risk 07/23/2023 07/23/2023 08/03/2023 1:23 AM EST documented as of this encounter Care Teams Wrecking Mechanic Relationship Specialty Start Date End Date Violetta Mccallum MD [address] [address] PCP - General Internal Medicine 09/17/21 Gregory Phan DMD, MD [address] [place] [phone] [email or web address] statement clerks manager 09/30/22 documented as of this encounter Additional Source Comments The information contained in this document represents components of the legal health record. It is not the complete legal health record.[facility]
== END 2025-04-09 12:12 | disposition home or self-care (01) ==
LOC: HO.HSM 11:16
PROVIDERS: PCP Internal Medicine; Visit Provider Psychiatry & Neurology Neurology
DX: G43.009 Migraine without aura, not intractable, without status migrainosus (principal); G90.1 Familial dysautonomia [Riley-Day]; I95.1 Orthostatic hypotension
CPT/HCPCS: 99204